=== PATIENT | male | born 1995 | race Caucasian/White ===

== ENCOUNTER 2016-11-23 22:36 | Emergency (ER) | payer BC ==
[~2016-11-23] VITALS: Ht 175.3 cm; Wt 100.0 kg
[~2016-11-23 22:36] MED LIST: ACET-749 PO
[2016-11-23 22:39] VITALS: TEMP 36.6; Ht 175.3 cm; Wt 100.0 kg
[2016-11-23] MEDS ORDERED: BLOOD PRESSURE PILL PO (22:56)
[2016-11-23] MEDS ORDERED: EFF/375 PO (22:56)
[2016-11-23 23:32] LABS: BASO % 0.1 %; BASO ABS # 0.01 K/uL (0-0.2); COMPLETE YES; HEMATOCRIT 42.2 % (42-52); IG% 0.3 %; LYMPH % 30.6 %; LYMPH ABS # 2.29 K/uL (1.2-3.4); MEAN CELL VOLUME 85.4 fL (80-100); MEAN CORPUSCULAR HEMOGLOBIN 29.4 pg (25-34); MEAN CORPUSCULAR HGB CONC 34.4 g/dl (32-36); MEAN PLATELET VOLUME 9.8 fL (7.4-10.4); MONO % 7.9 %; NEUT % 59.1 %; PLATELET COUNT 255 K/uL (130-400); RED BLOOD COUNT 4.94 M/uL (4.7-6.1); WHITE BLOOD COUNT 7.48 K/uL (4.8-10.8)
--- NOTE | 2016-11-23 23:35 | EMERGENCY ROOM VISIT NOTE ---
History Report prepared by Preeti: Vivian Cody Under the Supervision of: Dr. Jigna Britton D.O. First contact with patient: 23:05 Chief Complaint: DIZZY Stated Complaint: DIZZY, LEGS WEAK, FEELS OFF Nursing Triage Summary: Pt reports he was at work when he became dizzy and felt as though he would pass out. At time of incidient pt was standing over hot stove. At work since 1000 today. States he did eat and drink throughout his shift. States currently "my body feels very weird". Hx of bicuspid valve problem. History of Present Illness The patient is a 21 year old male who presents to the Emergency Room with complaints of persistent dizziness that began prior to arrival. 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 He states that he then became hot, weak, and dizzy. The patient states that he went to the back of the kitchen, got himself water, and sat down. He denies any loss of consciousness. The patient states that he had this happen in the past and actually lost consciousness at that time. He states that he attributed his syncopal event to not drinking enough water. The patient states that he ate lunch today and snacked today. He states that he kept up on his fluid intake. The patient denies any recent illness. He notes that he only urinated once today. The patient notes a history of a bicuspid aortic valve and hypertension. He denies medication compliance recently for his hypertension. The patient denies any history of diabetes. Source of History: patient Onset: prior to arrival Position: other (global) Quality: other (dizziness) Timing: other (persistent) Associated Symptoms: + headache, No LOC Note: Associated Symptoms: feeling hot Review of Systems See HPI for pertinent positives & negatives. A total of 10 systems reviewed and were otherwise negative. Past Medical & Surgical Medical Problems: (1) Bicuspid aortic valve (2) Hypertension Family History Diabetes mellitus Heart disease Hypertension Social History Smoking Status: Current Some Day Smoker Smokeless Tobacco Use: No Alcohol Use: occasionally Marital Status: single Housing Status: lives with family Occupation Status: employed Current/Historical Medications Scheduled Venlafaxine Hcl (Effexor), 37.5 MG PO DAILY [Blood Pressure Pill], 1 TAB PO DAILY Allergies Coded Allergies: No Known Allergies (Unverified Adverse Reaction, Unknown, 03/21/03) Physical Exam Vital Signs Date Time Temp Pulse Resp B/P Pulse Ox O2 Delivery O2 Flow Rate FiO2 11/24/16 00:43 76 18 174/94 96 Room Air 11/24/16 00:11 76 16 94 11/24/16 00:01 174/94 11/23/16 23:59 178/80 11/23/16 23:58 165/72 11/23/16 23:57 77 18 165/72 96 Room Air 81 178/80 84 174/94 11/23/16 23:41 82 18 94 11/23/16 23:36 83 15 96 11/23/16 23:30 169/93 11/23/16 23:17 179/80 11/23/16 23:06 84 16 96 11/23/16 22:57 87 11/23/16 22:53 184/93 11/23/16 22:39 36.6 97 18 194/88 96 Room Air Physical Exam HEENT: Head - normocephalic and atraumatic Pupils are equal, round, and reactive to light. Extraocular eye muscles are intact, and sclera are anicteric. Nose - moist nasal mucosa without discharge. Mouth - moist buccal mucosa. Oropharynx is nonerythematous and there is no tonsillar exudate or edema noted. Neck: Supple; no JVD, nuchal rigidity, cervical lymphadenopathy. Heart: Regular rate and rhythm. There is a normal S1 and S2 with no murmurs, clicks, or gallops appreciated. Lungs: Clear to auscultation bilaterally with no wheezes, rales, or rhonchi. Abdomen: Soft, completely nontender, nondistended, with good bowel sounds. There are no palpable pulsatile masses or hepatosplenomegaly. There is no guarding, rigidity, or rebound noted. Extremities: No evidence of cyanosis, clubbing, or edema. There are easily palpable peripheral pulses. Skin: hot to touch, and dry with good turgor and no rashes. Medical Decision & Procedures ER Provider Diagnostic Interpretation: 1 view chest x-ray: borderline cardiomegaly, no pulmonary pathology. Laboratory Results 11/23/16 22:50 Red Blood Count 4.94, Mean Corpuscular Volume 85.4, Mean Corpuscular Hemoglobin 29.4, Mean Corpuscular Hemoglobin Concent 34.4, Mean Platelet Volume 9.8, Neutrophils (%) (Auto) 59.1, Lymphocytes (%) (Auto) 30.6, Monocytes (%) (Auto) 7.9, Eosinophils (%) (Auto) 2.0, Basophils (%) (Auto) 0.1, Neutrophils # (Auto) 4.42, Lymphocytes # (Auto) 2.29, Monocytes # (Auto) 0.59, Eosinophils # (Auto) 0.15, Basophils # (Auto) 0.01 11/23/16 22:50 Test 11/23/16 22:50 White Blood Count 7.48 K/uL (4.8-10.8) Red Blood Count 4.94 M/uL (4.7-6.1) Hemoglobin 14.5 g/dL (14.0-18.0) Hematocrit 42.2 % (42-52) Mean Corpuscular Volume 85.4 fL (80-100) Mean Corpuscular Hemoglobin 29.4 pg (25-34) Mean Corpuscular Hemoglobin Concent 34.4 g/dl (32-36) Platelet Count 255 K/uL (130-400) Mean Platelet Volume 9.8 fL (7.4-10.4) Neutrophils (%) (Auto) 59.1 % Lymphocytes (%) (Auto) 30.6 % Monocytes (%) (Auto) 7.9 % Eosinophils (%) (Auto) 2.0 % Basophils (%) (Auto) 0.1 % Neutrophils # (Auto) 4.42 K/uL (1.4-6.5) Lymphocytes # (Auto) 2.29 K/uL (1.2-3.4) Monocytes # (Auto) 0.59 K/uL (0.11-0.59) Eosinophils # (Auto) 0.15 K/uL (0-0.5) Basophils # (Auto) 0.01 K/uL (0-0.2) RDW Standard Deviation 39.6 fL (36.4-46.3) RDW Coefficient of Variation 12.7 % (11.5-14.5) Immature Granulocyte % (Auto) 0.3 % Immature Granulocyte # (Auto) 0.02 K/uL (0.00-0.02) Anion Gap 11.0 mmol/L (3-11) Est Creatinine Clear Calc Drug Dose 134.0 ml/min Estimated GFR () 122.4 Estimated GFR (Non- 105.6 BUN/Creatinine Ratio 13.5 (10-20) Calcium Level 9.0 mg/dl (8.5-10.1) Total Bilirubin 0.5 mg/dl (0.2-1) Direct Bilirubin 0.2 mg/dl (0-0.2) Aspartate Amino Transf (AST/SGOT) 23 U/L (15-37) Alanine Aminotransferase (ALT/SGPT) 46 U/L (12-78) Alkaline Phosphatase 62 U/L (45-117) Total Protein 7.7 gm/dl (6.4-8.2) Albumin 4.6 gm/dl (3.4-5.0) Thyroid Stimulating Hormone (TSH) 3.810 uIu/ml (0.300-4.500) Laboratory results per my review. ECG Indication: other (dizziness) Rate (beats per minute): 90 Rhythm: normal sinus Findings: no acute ischemic change, no ectopy ED Course 230: Past medical records reviewed. The patient was evaluated in room A9B. A complete history and physical exam was performed. A twelve-lead EKG was obtained as described above. The patient had a chest x-ray which showed no pulmonary findings but did reveal borderline cardiomegaly. Patient's blood pressure came down slightly on sounds like he was here in the emergency department. 0020: I reevaluated the patient and he feels better. I discussed all the exam findings with him and his family and I discussed the treatment plan. I discussed the importance of him taking his medications. He verbalized complete understanding and agreement. He is ready to go home. Medical Decision The patient is a 21 year old male who presents to the ED with dizziness. Differential diagnosis includes hypertensive crisis, near syncope, dehydration, migraine, vasovagal syncope. Lab interpretation: no leukocytosis, stable H&H, normal TSH and glucose, normal LFTs and renal function. Patient has a history of hypertension but does not consistently take his medications. The patient developed a headache and near syncope while at work today. His symptoms have resolved here in the emergency department. The patient was found to be moderately hypertensive. I spent a great of time talking to the patient about control of his blood pressure, diet and exercise. I've asked him to follow up closely with Dr. Hunter for further control blood pressure. I suggested that he take his blood pressure 3-4 times a week and keep a log. The patient is prescribed Losarten. He should start taking this regularly as directed. If he has any returning symptoms, he should return here to the ER. Impression Primary Impression: Near syncope Additional Impression: Uncontrolled hypertension Scribe Attestation The scribe's documentation has been prepared under my direction and personally reviewed by me in its entirety. I confirm that the note above accurately reflects all work, treatment, procedures, and medical decision making performed by me. Departure Information Dispostion Home / Self-Care Referrals Mike Hunter M.D. (PCP) Forms HOME CARE DOCUMENTATION FORM, IMPORTANT VISIT INFORMATION Patient Instructions ED Hypertension Conf Out Of Control, Hypertension Control, [facility] Additional Instructions Rest. Limit salt intake Slowly start an exercise program once you are taking your BP meds regularly Keep a log of your BPs - follow up with Dr. Hunter Problem Qualifiers
[2016-11-23 23:39] LABS: BUN/CREATININE RATIO 13.5 (10-20); POTASSIUM 3.5 mmol/L (3.5-5.1)
[2016-11-23 23:50] LABS: THYROID STIMULATING HORMONE 3.81 uIu/ml (0.300-4.500)
[2016-11-24 00:43] VITALS: BP 174/94; PULSE 76; O2SAT 96
--- NOTE | 2016-11-24 06:24 | DIAGNOSTIC IMAGING REPORT ---
CHEST ONE VIEW PORTABLE CLINICAL HISTORY: Dizziness. Weakness. Pain delays. COMPARISON STUDY: No previous studies for comparison. FINDINGS: The heart is the upper limits of normal in size given the AP portable technique. There is no failure. There is no focal pulmonary consolidation. There are no pleural effusions.[ IMPRESSION: No active disease in the chest. Electronically signed by: Esdras August M.D. 11/24/2016 6:23 AM Dictated Date/Time: 11/24/2016 6:22 AM
== END 2016-11-24 00:40 | disposition home or self-care (01) ==
LOC: C.EDB 22:37 → C.EDA 11-24 00:40
DX: R55 Syncope and collapse (principal); I10 Essential (primary) hypertension; I35.8 Other nonrheumatic aortic valve disorders; F17.200 Nicotine dependence, unspecified, uncomplicated; Z79.899 Other long term (current) drug therapy; Z83.3 Family history of diabetes mellitus; Z82.49 Family history of ischemic heart disease and other diseases of the circulatory system

== ENCOUNTER 2017-10-31 05:08 | Emergency (ER) | payer BC, OTHER ==
[~2017-10-31] VITALS: Ht 175.3 cm; Wt 100.1 kg
[~2017-10-31 05:08] MED LIST changes: -ACET-749 PO; +BLOOD PRESSURE PILL PO; +EFF/375 PO
[2017-10-31 05:11] VITALS: TEMP 36.7; Ht 175.3 cm; Wt 100.1 kg
[2017-10-31] MEDS ORDERED: OPTIRAY 320 IV PRN (05:30)
[2017-10-31 05:32] LABS: BASO % 0.2 %; BASO ABS # 0.02 K/uL (0-0.2); EOS % 1.3 %; EOS ABS # 0.17 K/uL (0-0.5); HEMATOCRIT 43.6 % (42-52); HEMOGLOBIN 15.8 g/dL (14.0-18.0); IG# 0.03 K/uL (0.00-0.02); LYMPH % 14.9 %; LYMPH ABS # 1.95 K/uL (1.2-3.4); MEAN CELL VOLUME 85.8 fL (80-100); MEAN CORPUSCULAR HEMOGLOBIN 31.1 pg (25-34); MEAN CORPUSCULAR HGB CONC 36.2 g/dl (32-36); MEAN PLATELET VOLUME 9.9 fL (7.4-10.4); MONO ABS # 1.31 K/uL (0.11-0.59); NEUT % 73.4 %; NEUT ABS # 9.58 K/uL (1.4-6.5); PLATELET COUNT 240 K/uL (130-400); RED CELL DISTRIBUTION WIDTH CV 12.5 % (11.5-14.5); RED CELL DISTRIBUTION WIDTH SD 39.7 fL (36.4-46.3); WHITE BLOOD COUNT 13.06 K/uL (4.8-10.8)
[2017-10-31] MEDS ORDERED: LOSA50TA6 PO (05:36)
[2017-10-31 05:41] LABS: ISTAT IONIZED CALCIUM 1.2 mmol/l (1.12-1.32); ISTAT POTASSIUM 3.7 mEq/L (3.3-5.0)
[2017-10-31 05:49] LABS: CALCIUM 9.2 mg/dl (8.5-10.1); CREATININE 1.02 mg/dl (0.60-1.40); POTASSIUM 3.7 mmol/L (3.5-5.1)
[2017-10-31] MEDS ORDERED: AMOXICILLIN/CLAVULANATE TAB 875 MG TAB PO STA (06:23)
[2017-10-31 06:30] VITALS: BP 156/76; PULSE 83; O2SAT 96
[2017-10-31] MEDS ORDERED: AMOXICILLIN/CLAVULANATE TAB 875 MG TAB PO ONE (06:30)
[2017-10-31] MEDS ORDERED: AMOXICIL/CLAVU 875MG HOME PACK PO ONE (06:30)
--- NOTE | 2017-10-31 06:30 | EMERGENCY ROOM VISIT NOTE ---
History First contact with patient: 05:14 Chief Complaint: ABDOMINAL PAIN Stated Complaint: RIGHT LOWER ABD PAIN,SIDE PAIN History of Present Illness The patient is a 22 year old male who presents to the Emergency Room with complaints of nausea and right lower quadrant pain for the past 12 hours. He describes the pain as discomfort, ranging in severity 7 out of 10. Nothing makes it better or worse. It does not radiate. Patient has a lack of appetite. Patient denies chest pain, dyspnea, fever, chills, vomiting, diarrhea , back pain, urinary symptoms, testicular penile pain. He still has his appendix. Review of Systems An 10 system review of systems was completed with positives and pertinent negatives listed in the HPI. Past Medical/Surgical History Medical Problems: (1) Bicuspid aortic valve (2) Hypertension Family History Diabetes mellitus Heart disease Hypertension Social History Smoking Status: Current Some Day Smoker Alcohol Use: occasionally Marital Status: single Housing Status: lives with family Occupation Status: employed Current/Historical Medications Scheduled Losartan Potassium (Cozaar), 50 MG PO DAILY Venlafaxine Hcl (Effexor), 37.5 MG PO DAILY Physical Exam Vital Signs Date Time Temp Pulse Resp B/P (MAP) Pulse Ox O2 Delivery O2 Flow Rate FiO2 18 05:11 36.7 98 18 178/86 97 Room Air Physical Exam VITALS: Vitals are noted on the nurse's note and reviewed by myself. Vital signs hypertensive GENERAL: Pleasant male, in no acute distress, nondiaphoretic, well-developed well-nourished. SKIN: The skin was without rashes, erythema, edema, or bruising. There is no tenting of the skin. Capillary reflex less than 2 seconds. HEAD: Normocephalic atraumatic. EARS: External auditory canals clear, tympanic membranes pearly ronquillo without erythema or effusion bilaterally. EYES: Pupils equal round and reactive to light and accommodation. Conjunctivae without injection, sclerae without icterus. Extraocular movements intact. NOSE: Patent, turbinates without inflammation or discharge. MOUTH: Mucous membranes moist. Pharynx without erythema or exudate. Uvula midline. Airway patent. Tongue does not deviate. NECK: Supple without nuchal rigidity. No lymphadenopathy. No thyromegaly. Cervical spine is nontender. No JVD. HEART: Regular rate and rhythm LUNGS: Clear to auscultation bilaterally without wheezes, rales or rhonchi. No retractions or accessory muscle use. ABDOMEN: Positive bowel sounds x 4. Normal tympanic percussion. Soft, tender to palpation right lower quadrant, without masses or organomegaly. Taylor sign negative. No guarding or rebound tenderness. No CVA tenderness MUSCULOSKELETAL: No muscle atrophy, erythema, or edema noted. NEURO: Patient was alert and oriented to person place and time. Normal sensation to light and sharp touch. No focal neurological deficits. Medical Decision & Procedures Laboratory Results 10/31/17 05:20 Red Blood Count 5.08, Mean Corpuscular Volume 85.8, Mean Corpuscular Hemoglobin 31.1, Mean Corpuscular Hemoglobin Concent 36.2, Mean Platelet Volume 9.9, Neutrophils (%) (Auto) 73.4, Lymphocytes (%) (Auto) 14.9, Monocytes (%) (Auto) 10.0, Eosinophils (%) (Auto) 1.3, Basophils (%) (Auto) 0.2, Neutrophils # (Auto ) 9.58, Lymphocytes # (Auto) 1.95, Monocytes # (Auto) 1.31, Eosinophils # (Auto ) 0.17, Basophils # (Auto) 0.02 10/31/17 05:20 Test 10/31/17 05:20 10/31/17 05:26 10/31/17 05:30 White Blood Count 13.06 K/uL (4.8-10.8) Red Blood Count 5.08 M/uL (4.7-6.1) Hemoglobin 15.8 g/dL (14.0-18.0) Hematocrit 43.6 % (42-52) Mean Corpuscular Volume 85.8 fL (80-100) Mean Corpuscular Hemoglobin 31.1 pg (25-34) Mean Corpuscular Hemoglobin Concent 36.2 g/dl (32-36) Platelet Count 240 K/uL (130-400) Mean Platelet Volume 9.9 fL (7.4-10.4) Neutrophils (%) (Auto) 73.4 % Lymphocytes (%) (Auto) 14.9 % Monocytes (%) (Auto) 10.0 % Eosinophils (%) (Auto) 1.3 % Basophils (%) (Auto) 0.2 % Neutrophils # (Auto) 9.58 K/uL (1.4-6.5) Lymphocytes # (Auto) 1.95 K/uL (1.2-3.4) Monocytes # (Auto) 1.31 K/uL (0.11-0.59) Eosinophils # (Auto) 0.17 K/uL (0-0.5) Basophils # (Auto) 0.02 K/uL (0-0.2) RDW Standard Deviation 39.7 fL (36.4-46.3) RDW Coefficient of Variation 12.5 % (11.5-14.5) Immature Granulocyte % (Auto) 0.2 % Immature Granulocyte # (Auto) 0.03 K/uL (0.00-0.02) Est Creatinine Clear Calc Drug Dose 130.3 ml/min Estimated GFR () 118.7 Estimated GFR (Non- 102.4 BUN/Creatinine Ratio 14.2 (10-20) Calcium Level 9.2 mg/dl (8.5-10.1) Bedside Hemoglobin 15.3 g/dl (14.0-18.0) Bedside Hematocrit 45 % (42-52) Bedside Sodium 139 mEq/L (135-144) Bedside Potassium 3.7 mEq/L (3.3-5.0) Bedside Chloride 100 mEq/L (101-112) Bedside Total CO2 25 mEq/l (24-31) Anion Gap 18.0 mmol/L (16-25) Bedside Blood Urea Nitrogen 14 mg/dl (7-18) Bedside Creatinine 1.0 mg/dl (0.6-1.3) Bedside Glucose (other) 106 mg/dl (70-99) Bedside Ionized Calcium (Chandni) 1.20 mmol/l (1.12-1.32) Urine Color YELLOW Urine Appearance CLEAR (CLEAR) Urine pH 6.0 (4.5-7.5) Urine Specific [place] 1.016 (1.000-1.030) Urine Protein NEG (NEG) Urine Glucose (UA) NEG (NEG) Urine Ketones NEG (NEG) Urine Occult Blood NEG (NEG) Urine Nitrite NEG (NEG) Urine Bilirubin NEG (NEG) Urine Urobilinogen NEG (NEG) Urine Leukocyte Esterase NEG (NEG) ED Course Prior records/ancillary studies reviewed. Triage Nursing notes reviewed. The patient's history was concerning for abdominal pain. Differential diagnosis: Etiologies such as appendicitis, diverticulitis, PUD, biliary pathology, UTI, pancreatitis, obstruction, mesenteric ischemia, aortic pathology, infections, inflammatory bowel disease, renal colic, as well as others were entertained. Physical examination findings: As above. ER treatment provided: Zofran, morphine, IV fluids On reassessment the patient felt better. Diagnostics interpreted by me: The labs revealed mild leukocytosis. Stable H&H Imaging studies: CT ABDOMEN & PELVIS With Contrast: Impression: Acute diverticulitis of the cecum. Small amount of free fluid in the pelvis. No bowel obstruction, extra luminal gas, or abscess. Additional findings: Lower thorax is unremarkable. Liver, gallbladder, spleen, pancreas and adrenal glands are unremarkable. Kidneys, ureters and urinary bladder unremarkable. Appendix is unremarkable. No acute osseous abnormality. Radiologist: Raphael Young MD Exam and history seem consistent with diverticulitis. This is the patient's first episode. He was afebrile nontoxic. He had a mild leukocytosis. Patient did not have acute abdomen on exam. He is well-appearing. He is tolerating fluids. CT concerning for diverticulitis. He was advised to follow-up family care in a day or 2 here in the ER sooner for abdominal pain, fevers, vomiting, worsening signs or symptoms or as needed. He was advised to monitor his blood pressure. He is currently on blood pressure medicine. Patient denied any urinary symptoms or testicular / penile pain. By the evaluation outlined above emergent etiologies such as appendicitis, PUD, biliary pathology, UTI, pancreatitis, obstruction, mesenteric ischemia, aortic pathology, renal colic , as well as others were deemed relatively unlikely. The pt informed about the findings as listed above. All questions were answered and pleased with the treatment. Return instructions were outlined and the patient was discharged in stable condition. Outpatient prescription management: augmentin Referral: The patient was referred back to their primary care physician for follow-up in 1 -2 days for a recheck of the current condition. Case reviewed with my attending The chart was completed utilizing [employer] voice recognition software. Grammatical errors, random word insertions, pronoun errors, and incomplete sentences are an occassional consequence of this system due to software limitations, ambient noise, and hardware issues. Any formal questions or concerns about the content, text, or information contained within the body of this dictation should be directly addressed to the physician legal document assistant for clarification. Medical Decision As above Blood Pressure Screening Patient's blood pressure: Elevated blood pressure Blood pressure disposition: Elevated BP felt to be situational Impression Primary Impression: Diverticulitis Departure Information Dispostion Home / Self-Care Condition GOOD Referrals Mike Hunter M.D. (PCP) Patient Instructions [facility] Additional Instructions DO NOT drive, drink alcohol, operate machinery, or perform dangerous activities today. You were given medications in the ER that can affect your ability to safely function or operate a vehicle. Amoxicillin Clavulanate (Augmentin) 875mg: Take one pill twice daily for 14 days for your bowel infection. All antibiotics can cause diarrhea. If this occurs and you feel worse or it does not resolve in 1-2 days follow up with your doctor or return to the Emergency Department as this could be signs of serious underlying problems. Any medication can cause an allergic reaction, stop the pills immediately and return to the ER for rash, hives, breathing difficulties, or swelling. Zofran 4 m tablet every 6 hours as needed for nausea or vomiting. Ibuprofen(Motrin, Advil) may be used for fever or pain. Use 600mg every six hours as needed. Take with food. Avoid using more than 2400mg in a 24 hour period. Do not use 2400mg per day for more than three consecutive days without physician direction. Prolonged inappropriate use can lead to stomach upset or ulcers. (AND/OR) Acetaminophen(Tylenol) may be used for fever or pain. Use 1000mg every six hours as needed. Avoid using more than 3000mg in a 24 hour period. Rest and drink plenty of fluids as tolerated. Slow sips of water or sports drinks are recommended instead of large amounts all at once. Continue current medications. Once your stomach is settled start with a clear liquid diet (jello, soup broth, etc.) and then advance as tolerated. You should avoid full, heavy meals for about 24 hrs from the time your symptoms resolved. Return to the ER immediately for worsening or persistent abdominal pain, vomiting, fevers, chest pains, difficulty breathing, black or bloody stools, worsening of your condition, or as needed. Follow up with your primary physician 2-3 days for a recheck of your current condition. You may need a gastroenterology referral for your diverticulitis at a young age.
[2017-10-31] MEDS ORDERED: ONDA4TAB10 SL (06:32)
[2017-10-31] MEDS ORDERED: AMOX875T PO (06:32)
[2017-10-31] MEDS ORDERED: OXYCODONE IR HOME PACK PO ONE (06:45)
--- NOTE | 2017-10-31 06:56 | DIAGNOSTIC IMAGING REPORT ---
ABDOMEN AND PELVIS CT WITH IV CONTRAST CT DOSE: 667.26 mGy.cm HISTORY: Acute right lower quadrant abdominal pain rlq pain TECHNIQUE: Multiaxial CT images of the abdomen and pelvis were performed following the use of intravenous contrast. A dose lowering technique was utilized adhering to the principles of ALARA. COMPARISON STUDY: None. FINDINGS: Minimal dependent bibasilar atelectasis. No pneumatosis or pneumoperitoneum identified. Imaged inferior cardiac chambers are unremarkable. Liver, gallbladder, spleen, pancreas and adrenal glands are within normal limits. Kidneys are within normal limits. There is a curvilinear 2 mm hyperattenuating focus along the dependent aspect of the proximal right ureter, image 210 series 3. No hydronephrosis, perinephric or periureteral inflammatory stranding. Bladder is partially decompressed. Aorta appears normal. No bulky adenopathy. No small bowel obstruction. Mild free pelvic fluid of the dependent pelvis. Scattered noninflamed diverticula of the descending colon and splenic flexure. There is moderate wall thickening with surrounding inflammatory stranding adjacent to an inflamed cecal diverticulum as seen on image 265 series 3. Additional noninflamed cecal diverticula are also noted. No evidence of abscess or perforation. The appendix is air-filled and appears unremarkable, image 342 series 3. Terminal ileum appears to be within normal limits. Soft tissues are unremarkable. The bones appear intact. IMPRESSION: 1. Findings compatible with acute cecal diverticulitis with mild reactive free fluid of the dependent pelvis. No associated abscess or evidence of perforation. 2. Normal appendix. 3. No bowel obstruction. 4. Curvilinear 2 mm hyperattenuating focus of the dependent proximal right ureter without hydronephrosis may reflect a nonobstructing ureteral calculus. Electronically signed by: Talat Naidu M.D. 10/31/2017 6:55 AM Dictated Date/Time: 10/31/2017 6:49 AM
== END 2017-10-31 06:45 | disposition home or self-care (01) ==
LOC: C.EDB 05:09 → C.EDA 06:45
DX: K57.32 Diverticulitis of large intestine without perforation or abscess without bleeding (principal); I10 Essential (primary) hypertension; F17.210 Nicotine dependence, cigarettes, uncomplicated; Z79.899 Other long term (current) drug therapy

== ENCOUNTER → 2017-12-02 | Day surgery (SDC) | payer OTHER ==
[2017-11-27 09:23] VITALS: Ht 175.3 cm; Wt 97.7 kg
[~2017-12-02] VITALS: Ht 175.3 cm; Wt 97.7 kg
[~2017-12-02] MED LIST changes: +AMOX500C3 PO; +ATROPINE SULFATE 0.1 MG/ML 5ML SYR IV PRN; -BLOOD PRESSURE PILL PO; +EpHEDrine SULFATE INJ 50 MG/ML AMP IV PRN; +LIDOCAINE HCL 2% 2 ML VIAL (20MG/ML) ONE; +LOSA50TA6 PO; +MIDAZOLAM HCL 1 MG/ML 2ML VIAL ONE; +PROPOFOL IV EMULSION 10 MG/ML 20 ML VIAL ONE; +SODIUM CHLORIDE 0.9% 500ML 500 ML IV ONE
--- NOTE | 2017-12-02 13:18 | Endo History and Physical ---
History & Physical Date of Service: December 02, 2017. Chief Complaint: Referring Physician: History of Present Illness Hx of diverticulitis Past Surgical History Hx Cardiac Surgery: No Hx Internal Defibrillator: No Hx Pacemaker: No Hx Abdominal Surgery: No Hx of Implantable Prosthesis: No Hx Cancer Surgery: No Hx Thoracic Surgery: No Hx Orthopedic: No Hx Urinary Tract Surgery: No Family History Esophogeal [place] Social History Smoking Status: Current Some Day Smoker Hx Substance Use: No Hx Alcohol Use: Yes (OCCASIONAL) Allergies Coded Allergies: No Known Allergies (Unverified , 12/02/17) Current Medications Reported Home Medications Medications Dose Route/Sig Max Daily Dose Days Date Category Amoxil (Amoxicillin) 500 Mg Cap 1 Cap PO DIRECTED PRN 10 11/27/17 Reported Cozaar (Losartan Potassium) 50 Mg Tab 50 Mg PO DAILY 10/31/17 Reported Effexor (Venlafaxine Hcl) 37.5 Mg Tab 37.5 Mg PO DAILY 11/23/16 Reported Vital Signs Weight (Kilograms): 97.73 Height (Feet): 5 Height (Inches): 9 Physical Exam General Appearance: no apparent distress Respiratory/Chest: Auscultation: breath sounds normal Cardiovascular: Heart Auscultation: RRR Abdomen: Inspection & Palpation: soft, non-distended Assessment and Plan Stable for colonoscopy
--- NOTE | 2017-12-02 14:01 | Discharge Instructions ---
Endoscopy Patient Instructions Date / Procedure(s) Performed December 02, 2017. Colonoscopy Allergy Information Coded Allergies: No Known Allergies (Unverified , 12/02/17) Discharge Date / Findings December 02, 2017. Right sided diverticulosis and hemorrhoids Provider Instructions Activity Restrictions - No exercising or heavy lifting for 24 hours. - Do not drink alcohol the day of the procedure. - Do not drive a car or operate machinery until the day after the procedure. - Do not make any important decisions or sign important papers in 24 hours after the procedure. Following Day: - Return to full activity which may include returning to work/school. Diet Start your diet with liquids and light foods (jello, soup, juice, toast). Then eat your usual diet if not nauseated. Treatment For Common After Affects For mild abdominal pain, bloating, or excessive gas: - Rest - Eat lightly - Lie on right side Follow-Up Information Follow-up with Dr. Hunter as scheduled Anesthesia Information What You Should Know You have had a procedure that required some medicine to reduce anxiety and discomfort. This treatment is called moderate sedation. After receiving the treatment, you may be sleepy, but you will be able to breathe on your own. The effects of the treatment may last for several hours. Follow these instructions along with Activity/Diet recommendations noted above: * Do NOT do anything where dizziness or clumsiness would be dangerous. * Rest quietly at home today, then you can be up and about tomorrow. * Have a responsible person stay with you the rest of today. * You may have had an I.V. today. If so, you may take the dressing off later today. Recommendations Call your doctor if: * Trouble breathing * Continuous vomiting for more than 24 hours * Temperature above 101 degrees * Severe abdominal pain or bloating * Pain not relieved by pain medicine ordered * There is increased drainage or redness from any incision * A large amount of rectal bleeding greater than 2-3 tablespoons. (If you had a polyp/s removed or have hemorrhoids, a small amount of blood - from the rectum is to be expected.) * You have any unanswered questions or concerns. IN THE EVENT OF A SERIOUS EMERGENCY, GO TO THE NEAREST EMERGENCY ROOM Your discharge instructions were prepared by provider Reggie Thompson. Patient Instructions Signature Page Giorgio Jeffery Patient (or Guardian) Signature/Date: I have read and understand the instructions given to me by my caregivers. Caregiver/RN/Doctor Signature/Date: The above-named patient and/or guardian has received patient instructions on this date. + Original Patient Signature Page (only) stays with chart. Please make copy for patient.
--- NOTE | 2017-12-02 14:07 | GI REPORT ---
Patient Name: Giorgio Jeffery Procedure Date: 12/02/2017 1:16 PM Date of : 1995 Admit Type: Outpatient Age: 22 Gender: Male Attending MD: Reggie Thompson MD Procedure: Colonoscopy Providers: Reggie Thompson MD Referring MD: Mike Hunter Indications: Follow-up of diverticulitis Medicines: Monitored Anesthesia Care Complications: No immediate complications. Estimated Blood Loss: Estimated blood loss: none. Procedure: Pre-Anesthesia Assessment: - Prior to the procedure, a History and Physical was performed, and patient medications and allergies were reviewed. The patient is competent. The risks and benefits of the procedure and the sedation options and risks were discussed with the patient. All questions were answered and informed consent was obtained. Patient identification and proposed procedure were verified by the physician and the nurse in the procedure room. Mental Status Examination: alert and oriented. Airway Examination: normal oropharyngeal airway and neck mobility. Respiratory Examination: clear to auscultation. CV Examination: normal. ASA Grade Assessment: II - A patient with mild systemic disease. After reviewing the risks and benefits, the patient was deemed in satisfactory condition to undergo the procedure. The anesthesia plan was to use monitored anesthesia care (MAC). Immediately prior to administration of medications, the patient was re-assessed for adequacy to receive sedatives. The heart rate, respiratory rate, oxygen saturations, blood pressure, adequacy of pulmonary ventilation, and response to care were monitored throughout the procedure. The physical status of the patient was re-assessed after the procedure. After I obtained informed consent, the scope was passed under direct vision. Throughout the procedure, the patient's blood pressure, pulse, and oxygen saturations were monitored continuously. The scope was introduced through the anus and advanced to the terminal ileum. The colonoscopy was performed without difficulty. The patient tolerated the procedure well. The quality of the bowel preparation was good. The terminal ileum, ileocecal valve, appendiceal orifice, and rectum were photographed. Findings: The perianal and digital rectal examinations were normal. The terminal ileum appeared normal. Many small and large-mouthed diverticula were found from descending colon to cecum. Non-bleeding internal hemorrhoids were found during retroflexion. The hemorrhoids were small. Impression: - The examined portion of the ileum was normal. - Diverticulosis from descending to cecum. - Non-bleeding internal hemorrhoids. - No specimens collected. Recommendation: - Discharge patient to home. - High fiber diet. - Use fiber, for example Citrucel, Fibercon, Konsyl or Metamucil. - Return to referring physician. Reggie Thompson MD 12/02/2017 2:06:28 PM This report has been signed electronically. Note Initiated On: 12/02/2017 1:16 PM Number of Addenda: 0 I attest to the content of the Intraoperative Record and orders documented therein, exceptions below {[id number]}
--- NOTE | 2017-12-02 14:08 | Anesthesiology Progress Note ---
Anesthesia Post Op Note Date & Time December 02, 2017 at 14:07 Vital Signs Pain Intensity: 0 Vital Signs Past 12 Hours Date Time Temp Pulse Resp B/P (MAP) Pulse Ox O2 Delivery O2 Flow Rate FiO2 12/02/17 13:20 36.7 82 16 159/78 (105) 98 Room Air Notes Mental Status: alert / awake / arousable, participated in evaluation Pt Amnestic to Procedure: Yes Nausea / Vomiting: adequately controlled Pain: adequately controlled Airway Patency, RR, SpO2: stable & adequate BP & HR: stable & adequate Hydration State: stable & adequate Anesthetic Complications: no major complications apparent
[2017-12-02 14:31] VITALS: BP 132/82; PULSE 75; O2SAT 99
== END | disposition home or self-care (01) ==
LOC: C.GI 12:57
PROVIDERS: ATTEND Student in an Organized Health Care Education/Training Program
DX: K57.30 Diverticulosis of large intestine without perforation or abscess without bleeding (principal); K64.8 Other hemorrhoids; I10 Essential (primary) hypertension; K21.9 Gastro-esophageal reflux disease without esophagitis; F17.200 Nicotine dependence, unspecified, uncomplicated; E66.9 Obesity, unspecified; Z68.31 Body mass index [BMI] 31.0-31.9, adult

== ENCOUNTER 2021-02-27 19:39 | Inpatient (IN) ==
[2021-02-27] MEDS ORDERED: LORazepam 1 MG TAB SL STA (20:16)
--- NOTE | 2021-02-27 20:21 | Emergency Department Note ---
History of Present Illness General Chief Complaint: Mental Health Evaluation Stated Complaint: ANXIETY; DOES NOT WANT TO BE IN [facility] ROOM Time Seen by Provider: 02/27/21 20:11 Source: patient Mode of arrival: ambulatory Limitations: no limitations History of Present Illness Provider complaint: anxiety and heart racing Onset (ago): month(s) Symptoms: + palpitations Severity: severe Quality: + constant and + worsening Place: + home History of similar episodes: Yes Relieved By: + nothing Exacerbated By: + thinking about event Associated symptoms: + palpitations; no chest pain, no shortness of breath, no fever/chills or no malaise Home Medications Medication Instructions Recorded Confirmed Type losartan 50 mg tablet 50 mg PO DAILY 07/03/18 02/28/21 History escitalopram oxalate 20 mg tablet 30 mg PO DAILY 02/28/21 02/28/21 History famotidine 40 mg tablet 40 mg PO BID 02/28/21 02/28/21 History hydroxyzine HCl 10 mg tablet 10 mg PO TID PRN 02/28/21 02/28/21 History lorazepam 0.5 mg tablet 0.5 mg PO BID PRN 02/28/21 02/28/21 History Allergies Allergy/AdvReac Type Severity Reaction Status Date / Time No Known Allergies AdvReac Unknown Verified 09/11/19 11:57 Past Med/Surg History Medical History (Updated 02/28/21 @ 01:13 by Kilo Lowe MD) Anxiety Bicuspid aortic valve Hypertension Panic attack Family History Other No pertinent family history in first degree relatives Social History Smoking Status: Never smoker Tobacco Type: Cigarettes Hx Alcohol Use: No Hx Substance Use: No Preferred Language: Georgian Feels Safe at Home: Yes Review of Systems See HPI for pertinent positives & negatives. and A total of 10 systems reviewed and were otherwise negative Physical Exam Vital Signs Vital Signs - 24 hr 02/27/21 19:58 02/28/21 00:01 Temperature 37 C Temperature Source Temporal Artery Scan Pulse Rate 112 H Pulse Rate [Finger] 64 Respiratory Rate 18 18 Respiratory Effort / Characteristics Non-Labored Respiratory Depth Normal Blood Pressure 174/96 H Blood Pressure [Right Arm] 147/62 H Blood Pressure Mean 122 Blood Pressure Mean [Right Arm] 90 Pulse Oximetry 98 98 Oxygen Delivery Method Room Air Room Air Sepsis Recent Fever Within 48 Hours No Sepsis New/Unexplained Change in Mental Status No Sepsis Action Taken by Nursing No Action Required GENERAL: Anxious, tearful EYE EXAM: Normal conjunctiva. PERRL, no anisocoria and EOM's grossly intact w/o pain. OROPHARYNX: Moist mucus membranes. Grossly normal dentition. NECK: Supple, no nuchal rigidity, no adenopathy, non-tender. No signs of meningi smus. LUNGS: Clear to auscultation. Normal chest wall mechanics. HEART: NSR, no MRG. ABDOMEN: Abdomen soft, non-tender, normo-active bowel sounds, no masses, no rebound or guarding. BACK: No CVA TTP. SKIN: No rashes and no bruising. UPPER EXTREMITIES: Upper extremities are grossly normal. LOWER EXTREMITIES: Grossly normal, no edema. NEURO EXAM: A&O x3, cranial nerves II-XII grossly intact, normal speech, moves all 4 extremities on command w/o issue. Psych: Extremely anxious, quick speech, denies SI, HI, or AVH. Course Administered Medications Discontinued Medications Lorazepam (Lorazepam 1 Mg Tab) 1 mg SL NOW STA Stop: 02/27/21 20:17 Last Admin: 02/27/21 20:22 Dose: 1 mg Documented by: [id number] Ziprasidone (Ziprasidone 20 Mg/Ml Sdv) 10 mg IM NOW STA Stop: 02/27/21 21:19 Last Admin: 02/27/21 21:42 Dose: 10 mg Documented by: [id number] Medical Decision Making Differential Diagnosis Differential Diagnosis: Mood disorder, infection, hypoglycemia, electrolyte abnormalities, cardiac sources, intracerebral event, toxicologic, trauma, neurologic, as well as other pathologies. Medical Records Attestation: I reviewed the patient's medical records. Home Medications Current Medication List: was personally reviewed by me Laboratory Data Attestation: I reviewed the patient's lab results. Result diagrams: 02/27/21 20:34 02/27/21 20:34 Lab Results 02/27/21 02/27/21 02/27/21 Range/Units 20:20 20:20 20:20 WBC (4.8-10.8) K/uL RBC (4.7-6.1) M/uL Hgb (14.0-18.0) g/dL Hct (42-52) % MCV (80-100) fL MCH (25-34) pg MCHC (32-36) g/dL RDW Std Deviation (36.4-46.3) fL RDW Coeff of Sarah (11.5-14.5) % Plt Count (130-400) K/uL MPV (7.4-10.4) fL Immature Gran % (Auto) % Neut % (Auto) % Lymph % (Auto) % Lucas % (Auto) % Eos % (Auto) % Baso % (Auto) % Neut # (Auto) (1.4-6.5) K/uL Lymph # (Auto) (1.2-3.4) K/uL Lucas # (Auto) (0.11-0.59) K/uL Eos # (Auto) (0-0.5) K/uL Baso # (Auto) (0-0.2) K/uL Immature Gran # (Auto) (0.00-0.02) K/uL Sodium (136-145) mmol/L Potassium (3.5-5.1) mmol/L Chloride (98-107) mmol/L Carbon Dioxide (21-32) mmol/L Anion Gap (3-11) BUN (7-18) mg/dl Creatinine (0.6-1.4) mg/dl Est Cr Clr Drug Dosing ml/min Est GFR ( Amer) ml/min Est GFR (Non-Af Amer) ml/min BUN/Creatinine Ratio (10-20) Glucose (70-99) mg/dl Calcium (8.5-10.1) mg/dl Total Bilirubin (0.2-1) mg/dl AST (15-37) U/L ALT (12-78) U/L Alkaline Phosphatase (45-117) U/L Total Protein (6.4-8.2) gm/dl Albumin (3.4-5.0) gm/dl Globulin (2.5-4.0) gm/dl Albumin/Globulin Ratio (0.9-2) TSH (0.300-4.500) uIu/ml Urine Color Urine Appearance (Clear) Urine pH (4.5-7.5) Ur Specific Bowler (1.000-1.030) Urine Protein (Negative) Urine Glucose (UA) (Negative) Urine Ketones (Negative) Urine Blood (Negative) Urine Nitrite (Negative) Urine Bilirubin (Negative) Urine Urobilinogen (Negative) Ur Leukocyte Esterase (Negative) Urine WBC (Auto) (0-5) /hpf Urine RBC (Auto) (0-4) /hpf U Hyaline Cast (Auto) (0-5) /lpf U Epithel Cells (Auto) (0-5) /lpf Urine Bacteria (Auto) (Negative) Salicylates (2.8-20) mg/dl Urine Opiates Screen (Neg) Ur Methadone, Qual (Neg) Acetaminophen (10-30) ug/ml Urine Barbiturates (Neg) Ur Phencyclidine (PCP) (Neg) U Amphetamin/Meth Scrn (Neg) MDMA (Ecstasy) Screen (Neg) U Benzodiazepines Scrn (Neg) Ur Cocaine Metabolite (Neg) U Marijuana (THC) Screen (Neg) Ethyl Alcohol mg/dL (0-3) mg/dl COVID-19 Eval Order Cancelled Covid19 at [facility] SARS-CoV-2 (PCR) NEGATIVE (Negative) 02/27/21 02/27/21 02/27/21 Range/Units 20:34 20:34 20:34 WBC 8.74 (4.8-10.8) K/uL RBC 5.06 (4.7-6.1) M/uL Hgb 15.4 (14.0-18.0) g/dL Hct 43.2 (42-52) % MCV 85.4 (80-100) fL MCH 30.4 (25-34) pg MCHC 35.6 (32-36) g/dL RDW Std Deviation 41.3 (36.4-46.3) fL RDW Coeff of Sarah 13.3 (11.5-14.5) % Plt Count 321 (130-400) K/uL MPV 10.5 H (7.4-10.4) fL Immature Gran % (Auto) 0.2 % Neut % (Auto) 59.3 % Lymph % (Auto) 30.7 % Lucas % (Auto) 6.4 % Eos % (Auto) 3.2 % Baso % (Auto) 0.2 % Neut # (Auto) 5.18 (1.4-6.5) K/uL Lymph # (Auto) 2.68 (1.2-3.4) K/uL Lucas # (Auto) 0.56 (0.11-0.59) K/uL Eos # (Auto) 0.28 (0-0.5) K/uL Baso # (Auto) 0.02 (0-0.2) K/uL Immature Gran # (Auto) 0.02 (0.00-0.02) K/uL Sodium 140 (136-145) mmol/L Potassium 3.6 (3.5-5.1) mmol/L Chloride 108 H (98-107) mmol/L Carbon Dioxide 23 (21-32) mmol/L Anion Gap 9.0 (3-11) BUN 12 (7-18) mg/dl Creatinine 1.03 (0.6-1.4) mg/dl Est Cr Clr Drug Dosing 125.1 ml/min Est GFR ( Amer) 114.8 ml/min Est GFR (Non-Af Amer) 99.1 ml/min BUN/Creatinine Ratio 11.6 (10-20) Glucose 83 (70-99) mg/dl Calcium 9.7 (8.5-10.1) mg/dl Total Bilirubin 0.6 (0.2-1) mg/dl AST 23 (15-37) U/L ALT 35 (12-78) U/L Alkaline Phosphatase 71 (45-117) U/L Total Protein 8.0 (6.4-8.2) gm/dl Albumin 4.9 (3.4-5.0) gm/dl Globulin 3.1 (2.5-4.0) gm/dl Albumin/Globulin Ratio 1.6 (0.9-2) TSH 1.910 (0.300-4.500) uIu/ml Urine Color Urine Appearance (Clear) Urine pH (4.5-7.5) Ur Specific Bowler (1.000-1.030) Urine Protein (Negative) Urine Glucose (UA) (Negative) Urine Ketones (Negative) Urine Blood (Negative) Urine Nitrite (Negative) Urine Bilirubin (Negative) Urine Urobilinogen (Negative) Ur Leukocyte Esterase (Negative) Urine WBC (Auto) (0-5) /hpf Urine RBC (Auto) (0-4) /hpf U Hyaline Cast (Auto) (0-5) /lpf U Epithel Cells (Auto) (0-5) /lpf Urine Bacteria (Auto) (Negative) Salicylates < 1.7 L (2.8-20) mg/dl Urine Opiates Screen (Neg) Ur Methadone, Qual (Neg) Acetaminophen < 2 L (10-30) ug/ml Urine Barbiturates (Neg) Ur Phencyclidine (PCP) (Neg) U Amphetamin/Meth Scrn (Neg) MDMA (Ecstasy) Screen (Neg) U Benzodiazepines Scrn (Neg) Ur Cocaine Metabolite (Neg) U Marijuana (THC) Screen (Neg) Ethyl Alcohol mg/dL (0-3) mg/dl COVID-19 Eval Order SARS-CoV-2 (PCR) (Negative) 02/27/21 02/27/21 02/27/21 Range/Units 20:34 22:59 22:59 WBC (4.8-10.8) K/uL RBC (4.7-6.1) M/uL Hgb (14.0-18.0) g/dL Hct (42-52) % MCV (80-100) fL MCH (25-34) pg MCHC (32-36) g/dL RDW Std Deviation (36.4-46.3) fL RDW Coeff of Sarah (11.5-14.5) % Plt Count (130-400) K/uL MPV (7.4-10.4) fL Immature Gran % (Auto) % Neut % (Auto) % Lymph % (Auto) % Lucas % (Auto) % Eos % (Auto) % Baso % (Auto) % Neut # (Auto) (1.4-6.5) K/uL Lymph # (Auto) (1.2-3.4) K/uL Lucas # (Auto) (0.11-0.59) K/uL Eos # (Auto) (0-0.5) K/uL Baso # (Auto) (0-0.2) K/uL Immature Gran # (Auto) (0.00-0.02) K/uL Sodium (136-145) mmol/L Potassium (3.5-5.1) mmol/L Chloride (98-107) mmol/L Carbon Dioxide (21-32) mmol/L Anion Gap (3-11) BUN (7-18) mg/dl Creatinine (0.6-1.4) mg/dl Est Cr Clr Drug Dosing ml/min Est GFR ( Amer) ml/min Est GFR (Non-Af Amer) ml/min BUN/Creatinine Ratio (10-20) Glucose (70-99) mg/dl Calcium (8.5-10.1) mg/dl Total Bilirubin (0.2-1) mg/dl AST (15-37) U/L ALT (12-78) U/L Alkaline Phosphatase (45-117) U/L Total Protein (6.4-8.2) gm/dl Albumin (3.4-5.0) gm/dl Globulin (2.5-4.0) gm/dl Albumin/Globulin Ratio (0.9-2) TSH (0.300-4.500) uIu/ml Urine Color Yellow Urine Appearance Clear (Clear) Urine pH 5.5 (4.5-7.5) Ur Specific Bowler 1.022 (1.000-1.030) Urine Protein Trace H (Negative) Urine Glucose (UA) Negative (Negative) Urine Ketones 2+ H (Negative) Urine Blood Negative (Negative) Urine Nitrite Negative (Negative) Urine Bilirubin Negative (Negative) Urine Urobilinogen Negative (Negative) Ur Leukocyte Esterase Negative (Negative) Urine WBC (Auto) 1-5 (0-5) /hpf Urine RBC (Auto) 0-4 (0-4) /hpf U Hyaline Cast (Auto) 0 (0-5) /lpf U Epithel Cells (Auto) 5-10 H (0-5) /lpf Urine Bacteria (Auto) Negative (Negative) Salicylates (2.8-20) mg/dl Urine Opiates Screen Neg (Neg) Ur Methadone, Qual Neg (Neg) Acetaminophen (10-30) ug/ml Urine Barbiturates Neg (Neg) Ur Phencyclidine (PCP) Neg (Neg) U Amphetamin/Meth Scrn Neg (Neg) MDMA (Ecstasy) Screen Neg (Neg) U Benzodiazepines Scrn Pos H (Neg) Ur Cocaine Metabolite Neg (Neg) U Marijuana (THC) Screen Pos H (Neg) Ethyl Alcohol mg/dL < 3.0 (0-3) mg/dl COVID-19 Eval Order SARS-CoV-2 (PCR) (Negative) MDM Narrative Patient was seen due to concern for increasing anxiety. The patient has had issues with work and life in general. Patient denies any SI HI or AVH. The patient did try taking Valium today but without any improvement in his symptoms. The patient states that he feels as though he just has increasing adrenaline. The patient does perseverate on being concerned that he may have an elements of autism and is concerned about MS as he has a history of this in his family. The patient is seeking inpatient treatment as the patient feels as though he cannot function and would like to be taken off of benzodiazepines. The patient does feel that none of his medications seem to be working. Patient does complain of some tingling but believe this is likely related to the patient's anxiety. The patient was initially given Ativan. The patient did not have much improvement and thus was ordered ziprasidone. Patient did have improvement. Patient did have blood work completed was he medically cleared seen and evaluated by the caseworker intake and a referral was made to inpatient [facility] patient was accepted to [facility] for voluntary inpatient treatment. Impression & Plan Anxiety Discharge Plan Visit Data Chief Complaint: Mental Health Evaluation Stated Complaint: ANXIETY; DOES NOT WANT TO BE IN [facility] ROOM ED Provider: Kilo Lowe Discharge Problem: Anxiety Forms Stand Alone Forms: [facility] [employer], Suicide Prevention Resources Prescriptions Prescriptions: No Action losartan 50 mg tablet 50 mg PO DAILY RF: 0 lorazepam 0.5 mg tablet 0.5 mg PO BID PRN (Reason: Anxiety) RF: 0 hydroxyzine HCl 10 mg tablet 10 mg PO TID PRN (Reason: Anxiety) RF: 0 escitalopram oxalate 20 mg tablet 30 mg PO DAILY RF: 0 famotidine 40 mg tablet 40 mg PO BID RF: 0 Referrals Referrals: Akbar Lui, [Primary Care Provider] -
[2021-02-27 20:57] LABS: Basophils # (auto) 0.02 K/uL (0-0.2); Basophils % (auto) 0.2 %; Eosinophils # (auto) 0.28 K/uL (0-0.5); Eosinophils % (auto) 3.2 %; Hematocrit (blood only) 43.2 % (42-52); Hemoglobin 15.4 g/dL (14.0-18.0); Immature Granulocytes # (auto) 0.02 K/uL (0.00-0.02); Immature Granulocytes % (auto) 0.2 %; Lymphocytes # (auto) 2.68 K/uL (1.2-3.4); Lymphocytes % (auto) 30.7 %; Mean Corpuscular Hemoglobin 30.4 pg (25-34); Mean Corpuscular Hgb Conc 35.6 g/dL (32-36); Mean Corpuscular Volume 85.4 fL (80-100); Mean Platelet Volume 10.5 fL (7.4-10.4); Monocytes # (auto) 0.56 K/uL (0.11-0.59); Monocytes % (auto) 6.4 %; Neutrophils # (auto) 5.18 K/uL (1.4-6.5); Neutrophils % (auto) 59.3 %; Platelet Count 321 K/uL (130-400); RDW Coefficient of Variation 13.3 % (11.5-14.5); RDW Standard Deviation 41.3 fL (36.4-46.3); Red Blood Count 5.06 M/uL (4.7-6.1); White Blood Count 8.74 K/uL (4.8-10.8)
[2021-02-27] MEDS ORDERED: ZIPRASIDONE 20 MG/ML SDV IM STA (21:18)
[2021-02-27 21:40] LABS: Acetaminophen < 2 ug/ml (10-30); Albumin Level 4.9 gm/dl (3.4-5.0); BUN Creatinine Ratio 11.6 (10-20); Calcium 9.7 mg/dl (8.5-10.1); Creatinine Clr Calc Pharmacy 125.1 ml/min; Est GFR (African American) 114.8 ml/min; Est GFR (Non-African American) 99.1 ml/min; Potassium 3.6 mmol/L (3.5-5.1); Salicylate < 1.7 mg/dl (2.8-20)
[2021-02-27 21:51] LABS: Albumin Globulin Ratio 1.6 (0.9-2); Bilirubin,Total 0.6 mg/dl (0.2-1); Globulin 3.1 gm/dl (2.5-4.0); Thyroid Stimulating Hormone 1.91 uIu/ml (0.300-4.500)
[2021-02-27 23:29] LABS: Appearance Urine Clear (Clear); Bacteria Urine Automated Negative (Negative); Bilirubin Urine Negative (Negative); Blood Urine Negative (Negative); Cast Urine Automated 0 /lpf (0-5); Color Urine Yellow; Glucose Urine UA Negative (Negative); Ketones Urine 2+ (Negative); Leukocyte Esterase Urine Negative (Negative); Nitrite Urine Negative (Negative); Protein Urine Trace (Negative); RBC Urine Automated 0-4 /hpf (0-4); Specific Gravity Urine 1.022 (1.000-1.030); Urobilinogen Urine Negative (Negative); pH Urine 5.5 (4.5-7.5)
[2021-02-27 23:55] LABS: Amphetamines+Metham, Urine Neg (Neg); Barbiturates, Urine Neg (Neg); Benzodiazepine, Urine Pos (Neg); Cocaine, Urine Neg (Neg); MDMA (Ecstacy), Urine Neg (Neg); Methadone, Urine Neg (Neg); Opiate, Urine Neg (Neg); Phencyclidine, Urine Neg (Neg)
[2021-02-28] MEDS ORDERED: ACETAMINOPHEN 325 MG TAB PO PRN (03:24)
[2021-02-28] MEDS ORDERED: SODIUM CHLORIDE 0.65% NA SOLN 45 ML (OCEAN) PRN (03:24)
[2021-02-28] MEDS ORDERED: BISMUTH SUBSALICYLATE LIQD 236 ML PO PRN (03:24)
[2021-02-28] MEDS ORDERED: ALUMINUM/MAGNESIUM SUSP 30 ML UDC PO PRN (03:24)
[2021-02-28] MEDS ORDERED: MAGNESIUM HYDROXIDE SUSP 30 ML UDC PO PRN (03:24)
[2021-02-28] MEDS ORDERED: hydrOXYzine HCl 25 MG TAB PO PRN ×2 (03:24)
[2021-02-28] MEDS ORDERED: LORazepam 0.5 MG TAB PO PRN (03:25)
[2021-02-28] MEDS ORDERED: hydrOXYzine HCl 10 MG TAB PO PRN (04:51)
[2021-02-28] MEDS ORDERED: ESCITALOPRAM OXALATE 20 MG TAB PO SCH (09:00)
[2021-02-28] MEDS ORDERED: LORazepam 1 MG TAB PO PRN ×2 (11:15→11:18)
[2021-02-28] MEDS: NICOTINE 7 MG/24 HR TDSY TD SCH (11:22)
[2021-02-28] MEDS: FAMOTIDINE 40 MG TABLET PO SCH ×2 (11:23→21:33)
[2021-02-28] MEDS: LOSARTAN POTASSIUM 50 MG TAB PO SCH (11:23)
[2021-02-28] MEDS: QUEtiapine FUMARATE 25 MG TABLET PO PRN ×2 (12:08→18:44)
[2021-02-28] MEDS: ESCITALOPRAM OXALATE 20 MG TAB PO SCH (12:08)
--- NOTE | 2021-02-28 14:13 | History & Physical ---
Date of Service February 28, 2021 Impression / Recommendations Impression 25-year-old male presenting with anxiety and insomnia as well as some increased goal oriented activity. Patient is likely on the bipolar spectrum and will benefit from inpatient hospitalization for purposes of safety, stabilization, medication management. Patient appears to have responded well to antipsychotic use in the emergency department after benzodiazepine use was not effective. Patient is agreeable to start low-dose antipsychotics for purposes of mood stabilization and anxiety relief. (1) Unspecified mood [affective] disorder: The patient was admitted to the [facility] ([facility]) on every 15 minute checks (behavioral with suicide precautions for safety. The patient will participate in group, recreational, and milieu therapies and will be offered additional individual and family sessions as clinically appropriate. 02/28/2021atient's dosage of Lexapro will be lowered to 20 mg p.o. every morning, Seroquel 75 mg p.o. nightly will be added to his regimen along with Seroquel 25 mg p.o. as needed every 6 hours anxiety. Target dose of approximately 250 mg of Seroquel Protective Factors Assessment Employed: Yes Psychiatric History Identifying Data SANTINO ESTRADA is a 25-year-old M who currently lives in [facility] with roommates, has a history of anxiety and panic, and was admitted on 02/28/21 02:20 on a 201 voluntary commitment for increasing anxiety and insomnia.. Chief Complaint "I think I might be bipolar or on the spectrum". History of Present Illness As per original note from ED protective services case worker "Met with the patient during Dr. Lowe examination to complete Brief Assessment. The patient reports he has been a mess for a few months with anxiety and panic attacks and feeling like he constantly has adrenaline rushing through his body. The patient reports he took Diazepam today and still had a panic attack and feels like his whole body is tingling and numb. The patient reports he is afraid there is something more than mental health problems and took multiple Autism Spectrum Disorder tests online, all of which he reports he scored high on (also reports there is a family history of Autism). The patient reports he is terrified about what is going on and wants to stop taking benzodiazepines. The patient reports N/V, poor concentration and possible visual hallucinations (thought the room he is in was pink earlier). The patient is requesting inpatient treatment due to his high levels of anxiety and panic and to try to find out if there is more than just mental health involved with his problems. Patient currently denies S/I and H/I. Medical clearance explained. Met with the patient to complete [facility] Psychiatric Mental Health Evaluation. The patient reports his anxiety has been out of control for the past couple of months and benzodiazepines havent been helping (reports he would like to get off of the medications). The patient reports his main stressor is his current living arrangement and his roommates getting mad at him because he is having anxiety / panic attacks and is unable to keep up with cleaning. The patient reports he works at [employer], but is on pause because they want him to take FMLA due to his anxiety and panic. The patient reports poor appetite and will only eat when his stomach hurts. He reports he has poor sleep with an average of 5-6 hours per night with problems falling and staying asleep. The patient reports manic episodes where he feels like hes going to take over the world. The patient reports daily but not constant anxiety symptoms of shaking, crying, fast heart rate and feelings of numbness and tingling (rates current anxiety at 4 after medications but was a 10 upon arrival). The patient reports over the past 2 weeks he has been having panic attacks where he has worsening symptoms of his anxiety. The patient reports he had been drinking heavily at the start of COVID but has cut down considerably from then and denies other drug use (other than prescribed medications). The patient denies suicidal and homicidal ideation (scored a 5 on his Suicide Assessment) as well as self-injurious behavior. The patient is requesting inpatient treatment to deal with his anxiety / panic attacks due to continued deterioration on an outpatient basis. He reports he sees Dr. Sauceda for therapy and is trying to get in with [facility] for [facility]ry." Upon evaluation today patient endorsed the above information is accurate. Patient reports feeling as if he is on the bipolar spectrum as he is endorsing a history of increased goal oriented activity, periods of insomnia with surplus energy, pressured speech and racing thoughts. Patient also acknowledges periods of increased spending. He denies any audio or visual hallucinations. Denies any paranoia. Patient does report a history of mental health problems in his family including his father who is anxious and depressed. He reports an increase of the symptoms especially after having started Lexapro medication, and is reporting frequent panic attacks without relief with benzodiazepines. Patient is agreeable to take antipsychotic medication in efforts to aid with his panic and anxiety. He does report drinking sometimes up to several drinks per day in an attempt to control his anxiety, but states he is no longer getting any enjoyment or relief from drinking. He reports similarly with marijuana that it has been helpful until it was not at which point it started causing him severe anxiety. Patient does acknowledge occasional use but states that he has no di fficulty stopping if necessary. Patient does report one episode of depression around age 19 at which time patient states he was going through a lot of difficult times both with his schooling as well as his relationships. He stated at that time he was having suicidal thoughts, but never acted upon them. Past Psychiatric History Current Psychiatric Diagnosis: Mood disorder Allergies Allergy/AdvReac Type Severity Reaction Status Date / Time No Known Allergies AdvReac Unknown Verified 09/11/19 11:57 Home Medications Medication Instructions Recorded Confirmed Type losartan 50 mg tablet 50 mg PO DAILY 07/03/18 02/28/21 History escitalopram oxalate 20 mg tablet 30 mg PO DAILY 02/28/21 02/28/21 History famotidine 40 mg tablet 40 mg PO BID 02/28/21 02/28/21 History hydroxyzine HCl 10 mg tablet 10 mg PO TID PRN 02/28/21 02/28/21 History lorazepam 0.5 mg tablet 0.5 mg PO BID PRN 02/28/21 02/28/21 History Family History Family History of: Depression and Anxiety Alcohol History Hx of Alcohol Use Over the Past 12 Months: Yes (1-3 beers per day) AUDIT Total Score: 8 Smoking Use Have You Smoked or Used Tobacco Products in the Last 30 Days: Yes tobacco type: e-cigarettes Smoking Status: Current every day smoker Smoking packs per day: 0.25 Substance History Hx of Prescription Med Misuse Over the Past 12 Months: Yes (Lorazepam, takes 1- 1.5 MG BID.) Hx of Over the Counter Med Misuse Over the Past 12 Months: No Hx of Inhalent Misuse Over the Past 12 Months: No Hx of Organic Substance Use Over the Past 12 Months: No Hx of Illegal Substances/Street Drug Use Over Past 12 Months: No Problems as a Result of Past Substance Use: None Identified Personal History Living Arrangements: Apartment Highest Grade Completed: Some College Beliefs That Will Affect Care: None Patient History Medical History (Updated 02/28/21 @ 14:26 by Chandra Dallas MD) Anxiety Bicuspid aortic valve Hypertension Panic attack Family History Other No pertinent family history in first degree relatives Social History Smoking Status: Current every day smoker Tobacco Type: Cigarettes Hx Alcohol Use: No Hx Substance Use: No Preferred Language: Kyrgyz Communication Ability: Effective Beliefs That Will Affect Care: None Feels Safe at Home: Yes Assistive Devices: None Review of Systems Review of Systems: All systems reviewed & are unremarkable except as noted in HPI & below Physical Exam Psychiatric: Orientation: alert and oriented x 3 Apperance: appropriately dressed Eye Contact: good eye contact Motor Behavior: no abnormal motor movements Speech: normal rate/rhythm/volume of speech Affect: + anxious affect Mood: + anxious mood Thought Process: linear/logical thought process Thought Content: reality based without delusions Suicidal Thoughts: denies suicidal thoughts and denies suicidal plan Homicidal Thoughts: denies homicidal thoughts and denies homicidal plan Hallucinations: no auditory hallucinations and no visual hallucinations Cognition: recent memory grossly intact Estimated Intelligence: consistent with education level Insight: + fair insight Judgement: + fair judgement Vital Signs (Past 24 Hours): Last Vital Signs Temp 36.4 C L 02/28/21 06:21 Pulse 75 02/28/21 06:25 Resp 16 02/28/21 06:21 BP 142/76 H 02/28/21 06:25 Pulse Ox 98 02/28/21 02:48 Results & Data ([facility]) Laboratory Results Laboratory Results - last 24 hr 02/27/21 02/27/21 02/27/21 20:20 20:20 20:20 WBC RBC Hgb Hct MCV MCH MCHC RDW Std Deviation RDW Coeff of Sarah Plt Count MPV Immature Gran % (Auto) Neut % (Auto) Lymph % (Auto) [place] % (Auto) Eos % (Auto) Baso % (Auto) Neut # (Auto) Lymph # (Auto) [place] # (Auto) Eos # (Auto) Baso # (Auto) Immature Gran # (Auto) Sodium Potassium Chloride Carbon Dioxide Anion Gap BUN Creatinine Est Cr Clr Drug Dosing Est GFR ( Amer) Est GFR (Non-Af Amer) BUN/Creatinine Ratio Glucose Calcium Total Bilirubin AST ALT Alkaline Phosphatase Total Protein Albumin Globulin Albumin/Globulin Ratio TSH Urine Color Urine Appearance Urine pH Ur Specific [place] Urine Protein Urine Glucose (UA) Urine Ketones Urine Blood Urine Nitrite Urine Bilirubin Urine Urobilinogen Ur Leukocyte Esterase Urine WBC (Auto) Urine RBC (Auto) U Hyaline Cast (Auto) U Epithel Cells (Auto) Urine Bacteria (Auto) Salicylates Urine Opiates Screen Ur Methadone, Qual Acetaminophen Urine Barbiturates Ur Phencyclidine (PCP) U Amphetamin/Meth Scrn MDMA (Ecstasy) Screen U OH-Alprazolam Confrm U Benzodiazepines Scrn 7-Amino Clonazepam Ur Nordiazepam Confirm U OH-ethylflurazepam U Lorazepam Cnf GC/MS U Oxazepam Confm GC/MS Ur Temazepam Confirm U OH-Triazolam Confirm U OH-Midazolam Confirm Ur Cocaine Metabolite U Marijuana (THC) Screen U Marijuana THC Carboxy Drug Screen Comment Ethyl Alcohol mg/dL COVID-19 Eval Order Cancelled Covid19 at [facility] SARS-CoV-2 (PCR) NEGATIVE 02/27/21 02/27/21 02/27/21 20:34 20:34 20:34 WBC 8.74 RBC 5.06 Hgb 15.4 Hct 43.2 MCV 85.4 MCH 30.4 MCHC 35.6 RDW Std Deviation 41.3 RDW Coeff of Sarah 13.3 Plt Count 321 MPV 10.5 H Immature Gran % (Auto) 0.2 Neut % (Auto) 59.3 Lymph % (Auto) 30.7 [place] % (Auto) 6.4 Eos % (Auto) 3.2 Baso % (Auto) 0.2 Neut # (Auto) 5.18 Lymph # (Auto) 2.68 [place] # (Auto) 0.56 Eos # (Auto) 0.28 Baso # (Auto) 0.02 Immature Gran # (Auto) 0.02 Sodium 140 Potassium 3.6 Chloride 108 H Carbon Dioxide 23 Anion Gap 9.0 BUN 12 Creatinine 1.03 Est Cr Clr Drug Dosing 125.1 Est GFR ( Amer) 114.8 Est GFR (Non-Af Amer) 99.1 BUN/Creatinine Ratio 11.6 Glucose 83 Calcium 9.7 Total Bilirubin 0.6 AST 23 ALT 35 Alkaline Phosphatase 71 Total Protein 8.0 Albumin 4.9 Globulin 3.1 Albumin/Globulin Ratio 1.6 TSH 1.910 Urine Color Urine Appearance Urine pH Ur Specific [place] Urine Protein Urine Glucose (UA) Urine Ketones Urine Blood Urine Nitrite Urine Bilirubin Urine Urobilinogen Ur Leukocyte Esterase Urine WBC (Auto) Urine RBC (Auto) U Hyaline Cast (Auto) U Epithel Cells (Auto) Urine Bacteria (Auto) Salicylates < 1.7 L Urine Opiates Screen Ur Methadone, Qual Acetaminophen < 2 L Urine Barbiturates Ur Phencyclidine (PCP) U Amphetamin/Meth Scrn MDMA (Ecstasy) Screen U OH-Alprazolam Confrm U Benzodiazepines Scrn 7-Amino Clonazepam Ur Nordiazepam Confirm U OH-ethylflurazepam U Lorazepam Cnf GC/MS U Oxazepam Confm GC/MS Ur Temazepam Confirm U OH-Triazolam Confirm U OH-Midazolam Confirm Ur Cocaine Metabolite U Marijuana (THC) Screen U Marijuana THC Carboxy Drug Screen Comment Ethyl Alcohol mg/dL COVID-19 Eval Order SARS-CoV-2 (PCR) 02/27/21 02/27/21 02/27/21 20:34 22:59 22:59 WBC RBC Hgb Hct MCV MCH MCHC RDW Std Deviation RDW Coeff of Sarah Plt Count MPV Immature Gran % (Auto) Neut % (Auto) Lymph % (Auto) [place] % (Auto) Eos % (Auto) Baso % (Auto) Neut # (Auto) Lymph # (Auto) [place] # (Auto) Eos # (Auto) Baso # (Auto) Immature Gran # (Auto) Sodium Potassium Chloride Carbon Dioxide Anion Gap BUN Creatinine Est Cr Clr Drug Dosing Est GFR ( Amer) Est GFR (Non-Af Amer) BUN/Creatinine Ratio Glucose Calcium Total Bilirubin AST ALT Alkaline Phosphatase Total Protein Albumin Globulin Albumin/Globulin Ratio TSH Urine Color Yellow Urine Appearance Clear Urine pH 5.5 Ur Specific [place] 1.022 Urine Protein Trace H Urine Glucose (UA) Negative Urine Ketones 2+ H Urine Blood Negative Urine Nitrite Negative Urine Bilirubin Negative Urine Urobilinogen Negative Ur Leukocyte Esterase Negative Urine WBC (Auto) 1-5 Urine RBC (Auto) 0-4 U Hyaline Cast (Auto) 0 U Epithel Cells (Auto) 5-10 H Urine Bacteria (Auto) Negative Salicylates Urine Opiates Screen Neg Ur Methadone, Qual Neg Acetaminophen Urine Barbiturates Neg Ur Phencyclidine (PCP) Neg U Amphetamin/Meth Scrn Neg MDMA (Ecstasy) Screen Neg U OH-Alprazolam Confrm U Benzodiazepines Scrn Pos H 7-Amino Clonazepam Ur Nordiazepam Confirm U OH-ethylflurazepam U Lorazepam Cnf GC/MS U Oxazepam Confm GC/MS Ur Temazepam Confirm U OH-Triazolam Confirm U OH-Midazolam Confirm Ur Cocaine Metabolite Neg U Marijuana (THC) Screen Pos H U Marijuana THC Carboxy Drug Screen Comment Ethyl Alcohol mg/dL < 3.0 COVID-19 Eval Order SARS-CoV-2 (PCR) 02/27/21 22:59 WBC RBC Hgb Hct MCV MCH MCHC RDW Std Deviation RDW Coeff of Sarah Plt Count MPV Immature Gran % (Auto) Neut % (Auto) Lymph % (Auto) [place] % (Auto) Eos % (Auto) Baso % (Auto) Neut # (Auto) Lymph # (Auto) [place] # (Auto) Eos # (Auto) Baso # (Auto) Immature Gran # (Auto) Sodium Potassium Chloride Carbon Dioxide Anion Gap BUN Creatinine Est Cr Clr Drug Dosing Est GFR ( Amer) Est GFR (Non-Af Amer) BUN/Creatinine Ratio Glucose Calcium Total Bilirubin AST ALT Alkaline Phosphatase Total Protein Albumin Globulin Albumin/Globulin Ratio TSH Urine Color Urine Appearance Urine pH Ur Specific [place] Urine Protein Urine Glucose (UA) Urine Ketones Urine Blood Urine Nitrite Urine Bilirubin Urine Urobilinogen Ur Leukocyte Esterase Urine WBC (Auto) Urine RBC (Auto) U Hyaline Cast (Auto) U Epithel Cells (Auto) Urine Bacteria (Auto) Salicylates Urine Opiates Screen Ur Methadone, Qual Acetaminophen Urine Barbiturates Ur Phencyclidine (PCP) U Amphetamin/Meth Scrn MDMA (Ecstasy) Screen U OH-Alprazolam Confrm Pending U Benzodiazepines Scrn 7-Amino Clonazepam Pending Ur Nordiazepam Confirm Pending U OH-ethylflurazepam Pending U Lorazepam Cnf GC/MS Pending U Oxazepam Confm GC/MS Pending Ur Temazepam Confirm Pending U OH-Triazolam Confirm Pending U OH-Midazolam Confirm Pending Ur Cocaine Metabolite U Marijuana (THC) Screen U Marijuana THC Carboxy Pending Drug Screen Comment Pending Ethyl Alcohol mg/dL COVID-19 Eval Order SARS-CoV-2 (PCR) Current Inpatient Medications Current Inpatient Medications: Current Inpatient Medications Acetaminophen (Acetaminophen 325 Mg Tab) 650 mg PO Q4H PRN PRN Reason: Headache or Minor Fever Stop: 03/30/21 03:23 Al Hydrox/Mg Hydrox/Simethicone (Aluminum/Magnesium Susp 30 Ml Udc) 30 ml PO Q4H PRN PRN Reason: GI Upset Stop: 03/30/21 03:23 Bismuth Subsalicylate (Bismuth Subsalicylate Liqd 236 Ml) 15 ml PO PRN PRN PRN Reason: Loose Stool Stop: 03/30/21 03:23 Escitalopram Oxalate (Escitalopram Oxalate 20 Mg Tab) 20 mg PO QAM [facility] Stop: 03/30/21 11:29 Last Admin: 02/28/21 12:08 Dose: 20 mg Documented by: Famotidine (Famotidine 40 Mg Tablet) 40 mg PO BID [facility] Stop: 03/30/21 08:59 Last Admin: 02/28/21 11:23 Dose: 40 mg Documented by: Lorazepam (Lorazepam 1 Mg Tab) 2 mg PO BID PRN PRN Reason: Panic attack Stop: 03/30/21 03:24 Losartan Potassium (Losartan Potassium 50 Mg Tab) 50 mg PO QAM [facility] Stop: 03/30/21 08:59 Last Admin: 02/28/21 11:23 Dose: 50 mg Documented by: Magnesium Hydroxide (Magnesium Hydroxide Susp 30 Ml Udc) 30 ml PO DAILY PRN PRN Reason: Constipation Stop: 03/30/21 03:23 Miscellaneous (Remove Nicoderm Patch) 1 ea N/A DAILY@0859 [facility] Stop: 03/30/21 08:58 Last Admin: 02/28/21 11:23 Dose: Not Given Documented by: Nicotine (Nicotine 7 Mg/24 Hr Tdsy) 7 mg TD QAM [facility] Stop: 03/30/21 08:59 Last Admin: 02/28/21 11:22 Dose: Not Given Documented by: Quetiapine Fumarate (Quetiapine Fumarate 25 Mg Tablet) 25 mg PO Q6 PRN PRN Reason: Anxiety Stop: 03/30/21 11:59 Last Admin: 02/28/21 12:08 Dose: 25 mg Documented by: Quetiapine Fumarate (Quetiapine Fumarate 25 Mg Tablet) 75 mg PO HS [facility] Stop: 03/30/21 21:59 Sodium Chloride (Sodium Chloride 0.65% Na Soln 45 Ml ([place])) 1 - 2 sprays NA PRN PRN PRN Reason: Nasal Dryness/Congestion Stop: 03/30/21 03:23
[2021-02-28] MEDS ORDERED: QUEtiapine FUMARATE 25 MG TABLET PO SCH (22:00)
[2021-03-01] MEDS: LOSARTAN POTASSIUM 50 MG TAB PO SCH (08:59)
[2021-03-01] MEDS: NICOTINE 7 MG/24 HR TDSY TD SCH (08:59)
[2021-03-01] MEDS: FAMOTIDINE 40 MG TABLET PO SCH ×2 (08:59→21:05)
[2021-03-01] MEDS: ESCITALOPRAM OXALATE 20 MG TAB PO SCH (08:59)
--- NOTE | 2021-03-01 10:53 | Psychiatric Progress Note ---
Date of Service March 01, 2021 Impression / Recommendations Impression 25-year-old male presenting with anxiety and insomnia as well as some increased goal oriented activity. Patient is likely on the bipolar spectrum and will benefit from inpatient hospitalization for purposes of safety, stabilization, medication management. Patient appears to have responded well to antipsychotic use in the emergency department after benzodiazepine use was not effective. Patient is agreeable to start low-dose antipsychotics for purposes of mood stabilization and anxiety relief. (1) Unspecified mood [affective] disorder: The patient was admitted to the [facility] ([facility]) on every 15 minute checks (behavioral with suicide precautions for safety. The patient will participate in group, recreational, and milieu therapies and will be offered additional individual and family sessions as clinically appropriate. 03/01/2021atient appears to be responding well to the medication. Will increase nightly dose of Seroquel to 150 mg p.o. nightly, Lexapro dosage will remain at 20 mg p.o. every morning 02/28/2021atient's dosage of Lexapro will be lowered to 20 mg p.o. every morning, Seroquel 75 mg p.o. nightly will be added to his regimen along with Seroquel 25 mg p.o. as needed every 6 hours anxiety. Target dose of approximately 250 mg of Seroquel Protective Factors Assessment Employed: Yes Interval History Chief Complaint "I'm okay, I don't know if i have to be here much longer". Review of Systems Sleep Information Total Hours of Sleep: 5.5 Sleep Comments: Patient arrived to unit at 0255 and appeared to sleep well after admission process was finished. Meal Information Percent Meal Consumed - Breakfast: 10 Percent Meal Consumed - Lunch: 90 Percent Meal Consumed - Dinner: 80 Nutrition Comment: Pt said that he usually doesn't eat a lot at breakfast Subjective Subjective Patient seen, chart reviewed and case discussed with treatment team, nursing and social work. Patient reports a good night of sleep and strong appetite. No side effects reported or observed. Regarding mood, patient reports some improvement which they attribute to the medications as well as the therapy they have received on the unit. States that the Seroquel medication is helping him to feel more calm. Also reports receiving a good night of sleep on the medication. I spent 30 minutes with the patient, 50% of which was dedicated to counselling and coordination of care. Physical Exam Psychiatric Orientation: alert and oriented x 3 Apperance: appropriately dressed Eye Contact: good eye contact Motor Behavior: no abnormal motor movements Speech: normal rate/rhythm/volume of speech Affect: + anxious affect Mood: + anxious mood Thought Process: linear/logical thought process Thought Content: reality based without delusions Suicidal Thoughts: denies suicidal thoughts and denies suicidal plan Homicidal Thoughts: denies homicidal thoughts and denies homicidal plan Hallucinations: no auditory hallucinations and no visual hallucinations Cognition: recent memory grossly intact Estimated Intelligence: consistent with education level Insight: + fair insight Judgement: + fair judgement Vital Signs (Past 24 Hours) Last Vital Signs Temp 36.3 C L 03/01/21 06:00 Pulse 89 03/01/21 06:21 Resp 18 03/01/21 06:00 BP 164/85 H 03/01/21 06:21 Pulse Ox 98 02/28/21 02:48 Results & Data ([facility]) Current Inpatient Medications Current Inpatient Medications: Current Inpatient Medications Acetaminophen (Acetaminophen 325 Mg Tab) 650 mg PO Q4H PRN PRN Reason: Headache or Minor Fever Stop: 03/30/21 03:23 Al Hydrox/Mg Hydrox/Simethicone (Aluminum/Magnesium Susp 30 Ml Udc) 30 ml PO Q4H PRN PRN Reason: GI Upset Stop: 03/30/21 03:23 Bismuth Subsalicylate (Bismuth Subsalicylate Liqd 236 Ml) 15 ml PO PRN PRN PRN Reason: Loose Stool Stop: 03/30/21 03:23 Escitalopram Oxalate (Escitalopram Oxalate 20 Mg Tab) 20 mg PO QAM [facility] Stop: 03/30/21 11:29 Last Admin: 03/01/21 08:59 Dose: 20 mg Documented by: Famotidine (Famotidine 40 Mg Tablet) 40 mg PO BID [facility] Stop: 03/30/21 08:59 Last Admin: 03/01/21 08:59 Dose: 40 mg Documented by: Lorazepam (Lorazepam 1 Mg Tab) 2 mg PO BID PRN PRN Reason: Panic attack Stop: 03/30/21 03:24 Last Admin: 02/28/21 23:07 Dose: 2 mg Documented by: Losartan Potassium (Losartan Potassium 50 Mg Tab) 50 mg PO QAM [facility] Stop: 03/30/21 08:59 Last Admin: 03/01/21 08:59 Dose: 50 mg Documented by: Magnesium Hydroxide (Magnesium Hydroxide Susp 30 Ml Udc) 30 ml PO DAILY PRN PRN Reason: Constipation Stop: 03/30/21 03:23 Miscellaneous (Remove Nicoderm Patch) 1 ea N/A DAILY@0859 [facility] Stop: 03/30/21 08:58 Last Admin: 03/01/21 08:59 Dose: Not Given Documented by: Nicotine (Nicotine 7 Mg/24 Hr Tdsy) 7 mg TD QAM [facility] Stop: 03/30/21 08:59 Last Admin: 03/01/21 08:59 Dose: Not Given Documented by: Quetiapine Fumarate (Quetiapine Fumarate 25 Mg Tablet) 25 mg PO Q6 PRN PRN Reason: Anxiety Stop: 03/30/21 11:59 Last Admin: 02/28/21 18:44 Dose: 25 mg Documented by: Quetiapine Fumarate (Quetiapine Fumarate 25 Mg Tablet) 75 mg PO HS [facility] Stop: 03/30/21 21:59 Last Admin: 02/28/21 21:33 Dose: 75 mg Documented by: Sodium Chloride (Sodium Chloride 0.65% Na Soln 45 Ml ([place])) 1 - 2 sprays NA PRN PRN PRN Reason: Nasal Dryness/Congestion Stop: 03/30/21 03:23 Mental Health & Subst Abuse Tx Therapist Name of Therapist: Dr. Carranza [facility] Date of Therapist Appointment: 03/07/21 Time of Therapist Appointment: 2:40 p.m. Therapy Appointment Comment: Telehealth video Entry Level Software Engineer Name of Entry Level Software Engineer: . Post Discharge Appointments Primary Care Physician Name Of Family Doctor: [facility] - Dr[facility] Akbar Lui [facility] Date of Appointment with PCP: 05/23/21 Time of Appointment with PCP: 2:20 p.m. Provider Appointment Comment: [address] [facility] Contact Information Discharge Discharge Address: [address] [place] [address], [address], [place] [address]
[2021-03-01] MEDS: QUEtiapine FUMARATE 25 MG TABLET PO PRN ×2 (16:21→23:48)
[2021-03-01] MEDS ORDERED: QUEtiapine FUMARATE 25 MG TABLET PO SCH (22:00)
[2021-03-02] MEDS: NICOTINE 7 MG/24 HR TDSY TD SCH (08:50)
[2021-03-02] MEDS: ESCITALOPRAM OXALATE 20 MG TAB PO SCH (08:50)
[2021-03-02] MEDS: LOSARTAN POTASSIUM 50 MG TAB PO SCH (08:50)
[2021-03-02] MEDS: FAMOTIDINE 40 MG TABLET PO SCH ×2 (08:50→21:13)
--- NOTE | 2021-03-02 14:30 | Psychiatric Progress Note ---
Date of Service March 02, 2021 Impression / Recommendations Impression 25-year-old male presenting with anxiety and insomnia as well as some increased goal oriented activity. Patient is likely on the bipolar spectrum and will benefit from inpatient hospitalization for purposes of safety, stabilization, medication management. Patient appears to have responded well to antipsychotic use in the emergency department after benzodiazepine use was not effective. Patient is agreeable to start low-dose antipsychotics for purposes of mood stabilization and anxiety relief. (1) Unspecified mood [affective] disorder: The patient was admitted to the [facility] ([facility] health unit) on every 15 minute checks (behavioral with suicide precautions for safety. The patient will participate in group, recreational, and milieu therapies and will be offered additional individual and family sessions as clinically appropriate. 03/01/2021atient appears to be responding well to the medication. Will increase nightly dose of Seroquel to 150 mg p.o. nightly, Lexapro dosage will remain at 20 mg p.o. every morning 02/28/2021atient's dosage of Lexapro will be lowered to 20 mg p.o. every morning, Seroquel 75 mg p.o. nightly will be added to his regimen along with Seroquel 25 mg p.o. as needed every 6 hours anxiety. Target dose of approximately 250 mg of Seroquel Protective Factors Assessment Employed: Yes Interval History Identifying Information 25-year-old male who presented with complaints of anxiety and panic attack but also acknowledges bipolar symptoms including insomnia, delusions, increased goal oriented activity Chief Complaint "my mood is up and down". Review of Systems Sleep Information Total Hours of Sleep: 6 Sleep Comments: pt on q-15 minute checks Meal Information Percent Meal Consumed - Breakfast: 100 Percent Meal Consumed - Lunch: 100 Percent Meal Consumed - Dinner: 100 Nutrition Comment: Pt said that he usually doesn't eat a lot at breakfast Subjective Subjective Patient seen, chart reviewed and case discussed with treatment team, nursing and social work. Patient reports a good night of sleep and strong appetite. No side effects r eported or observed. Regarding mood, patient reports some improvement which they attribute to the medications as well as the therapy they have received on the unit. His mood is still labile and at times he is upset and frustrated from seemingly delusional thought processes. Last night he was certain that a friend of his was going to hurt his cat. He was assured after calling the police and having them check up on his friend. He did refuse to take the increased dosage of Seroquel last night due to the quantity of pills. He was given a different prescription for fewer pills and explained that the target dosage would be approximately 300 mg of Seroquel to aid with mood stability. Patient expressed agreement and understanding. I spent 30 minutes with the patient, 50% of which was dedicated to counselling and coordination of care. Physical Exam Psychiatric Orientation: alert and oriented x 3 Apperance: appropriately dressed Eye Contact: good eye contact Motor Behavior: no abnormal motor movements Speech: normal rate/rhythm/volume of speech Affect: + anxious affect Mood: + anxious mood Thought Process: linear/logical thought process Thought Content: reality based without delusions Suicidal Thoughts: denies suicidal thoughts and denies suicidal plan Homicidal Thoughts: denies homicidal thoughts and denies homicidal plan Hallucinations: no auditory hallucinations and no visual hallucinations Cognition: recent memory grossly intact Estimated Intelligence: consistent with education level Insight: + fair insight Judgement: + fair judgement Vital Signs (Past 24 Hours) Last Vital Signs Temp 36.3 C L 03/02/21 06:49 Pulse 76 03/02/21 06:50 Resp 16 03/02/21 06:49 BP 154/87 H 03/02/21 06:50 Pulse Ox 98 02/28/21 02:48 Results & Data ([facility]) Current Inpatient Medications Current Inpatient Medications: Current Inpatient Medications Acetaminophen (Acetaminophen 325 Mg Tab) 650 mg PO Q4H PRN PRN Reason: Headache or Minor Fever Stop: 03/30/21 03:23 Al Hydrox/Mg Hydrox/Simethicone (Aluminum/Magnesium Susp 30 Ml Udc) 30 ml PO Q4H PRN PRN Reason: GI Upset Stop: 03/30/21 03:23 Bismuth Subsalicylate (Bismuth Subsalicylate Liqd 236 Ml) 15 ml PO PRN PRN PRN Reason: Loose Stool Stop: 03/30/21 03:23 Escitalopram Oxalate (Escitalopram Oxalate 20 Mg Tab) 20 mg PO QAM [facility] Stop: 03/30/21 11:29 Last Admin: 03/02/21 08:50 Dose: 20 mg Documented by: Famotidine (Famotidine 40 Mg Tablet) 40 mg PO BID [facility] Stop: 03/30/21 08:59 Last Admin: 03/02/21 08:50 Dose: 40 mg Documented by: Lorazepam (Lorazepam 1 Mg Tab) 2 mg PO BID PRN PRN Reason: Panic attack Stop: 03/30/21 03:24 Last Admin: 02/28/21 23:07 Dose: 2 mg Documented by: Losartan Potassium (Losartan Potassium 50 Mg Tab) 50 mg PO QAM [facility] Stop: 03/30/21 08:59 Last Admin: 03/02/21 08:50 Dose: 50 mg Documented by: Magnesium Hydroxide (Magnesium Hydroxide Susp 30 Ml Udc) 30 ml PO DAILY PRN PRN Reason: Constipation Stop: 03/30/21 03:23 Miscellaneous (Remove Nicoderm Patch) 1 ea N/A DAILY@858 [facility] Stop: 03/30/21 08:58 Last Admin: 03/02/21 08:50 Dose: Not Given Documented by: Nicotine (Nicotine 7 Mg/24 Hr Tdsy) 7 mg TD QAM [facility] Stop: 03/30/21 08:59 Last Admin: 03/02/21 08:50 Dose: Not Given Documented by: Quetiapine Fumarate (Quetiapine Fumarate 25 Mg Tablet) 25 mg PO Q6 PRN PRN Reason: Anxiety Stop: 03/30/21 11:59 Last Admin: 03/01/21 23:48 Dose: 25 mg Documented by: Quetiapine Fumarate (Quetiapine Fumarate 100 Mg Tablet) 150 mg PO HS [facility] Stop: 04/01/21 21:59 Sodium Chloride (Sodium Chloride 0.65% Na Soln 45 Ml ([place])) 1 - 2 sprays NA PRN PRN PRN Reason: Nasal Dryness/Congestion Stop: 03/30/21 03:23 Mental Health & Subst Abuse Tx Psychiatrist Name of Psychiatrist: made referral to [facility]- waiting for return call to schedule/set up Therapist Name of Therapist: Dr. Carranza through [facility] The[facility] Date of Therapist Appointment: 03/07/21 Time of Therapist Appointment: 2:40 p.m. Therapy Appointment Comment: Telehealth video Supervisor Winter Name of Supervisor Winter: . Post Discharge Appointments Primary Care Physician Name Of Family Doctor: Antonio - Dr. Akbar Lui Primary Care Date of Appointment with PCP: 05/23/21 Time of Appointment with PCP: 2:20 p.m. Provider Appointment Comment: [facility] Contact Information Discharge Discharge Address: [address] [place] [address], [address] , [place] [address]
[2021-03-02 21:48] LABS: Hydro-Alp Ur, GC/MS NEGATIVE ng/mL (<25); Hydroxyethylflurazepam, Conf NEGATIVE ng/mL (<50); Hydroxymidazolam Ur, GC/MS NEGATIVE ng/mL (<50); Hydroxytriazolam NEGATIVE ng/mL (<50); Lorazepam, Ur GC/MS 310 ng/mL (<50); Marijuana Quant, GCMS Urine 1265 ng/mL (<5); Nordiazepam, Confirm 102 ng/mL (<50); Oxazepam Ur, GC/MS NEGATIVE ng/mL (<50); Temazepam, Confirm NEGATIVE ng/mL (<50)
[2021-03-02] MEDS ORDERED: QUEtiapine FUMARATE 100 MG TABLET PO SCH (22:00)
[2021-03-03] MEDS: LOSARTAN POTASSIUM 50 MG TAB PO SCH (08:58)
[2021-03-03] MEDS: ESCITALOPRAM OXALATE 20 MG TAB PO SCH (08:58)
[2021-03-03] MEDS: NICOTINE 7 MG/24 HR TDSY TD SCH (08:59)
[2021-03-03] MEDS: FAMOTIDINE 40 MG TABLET PO SCH ×2 (08:59→21:12)
--- NOTE | 2021-03-03 12:07 | Psychiatric Progress Note ---
Date of Service March 03, 2021 Impression / Recommendations Impression 25-year-old male presenting with anxiety and insomnia as well as some increased goal oriented activity. Patient is likely on the bipolar spectrum and will benefit from inpatient hospitalization for purposes of safety, stabilization, medication management. Patient appears to have responded well to antipsychotic use in the emergency department after benzodiazepine use was not effective. Patient is agreeable to start low-dose antipsychotics for purposes of mood stabilization and anxiety relief. (1) Unspecified mood [affective] disorder: The patient was admitted to the [facility]) on every 15 minute checks (behavioral with suicide precautions for safety. The patient will participate in group, recreational, and milieu therapies and will be offered additional individual and family sessions as clinically appropriate. 03/03/2021we will plan to increase Seroquel to 250 mg tonight. Lexapro dosage to remain at 20 mg p.o. every morning. 03/01/2021atient appears to be responding well to the medication. Will increase nightly dose of Seroquel to 150 mg p.o. nightly, Lexapro dosage will remain at 20 mg p.o. every morning 02/28/2021atient's dosage of Lexapro will be lowered to 20 mg p.o. every morning, Seroquel 75 mg p.o. nightly will be added to his regimen along with Seroquel 25 mg p.o. as needed every 6 hours anxiety. Target dose of approximately 250 mg of Seroquel Protective Factors Assessment Employed: Yes Interval History Identifying Information 25-year-old male who presented with complaints of anxiety and panic attack but also acknowledges bipolar symptoms including insomnia, delusions, increased goal oriented activity Chief Complaint "I think i'm starting to feel better". Review of Systems Sleep Information Total Hours of Sleep: 6.5 Sleep Comments: pt on q-15 minute checks Meal Information Percent Meal Consumed - Breakfast: 100 Percent Meal Consumed - Lunch: 100 Percent Meal Consumed - Dinner: 95 Nutrition Comment: Pt said that he usually doesn't eat a lot at breakfast Subjective Subjective Patient seen, chart reviewed and case discussed with treatment team, nursing and social work. Patient reports a good night of sleep and strong appetite. No side effects reported or observed. Regarding mood, patient reports some improvement which they attribute to the medications as well as the therapy they have received on the unit. Patient still displaying some lability, although significantly decreased from admission. He is in agreement with the plan to continue to slowly increase the Seroquel to a target dosage of approximately 300 mg. Patient reports that his anxiety has lessened, and he feels more in control of his thoughts. I spent 30 minutes with the patient, 50% of which was dedicated to counselling and coordination of care. Physical Exam Psychiatric Orientation: alert and oriented x 3 Apperance: appropriately dressed Eye Contact: good eye contact Motor Behavior: no abnormal motor movements Speech: normal rate/rhythm/volume of speech Affect: + anxious affect Mood: + anxious mood Thought Process: linear/logical thought process Thought Content: reality based without delusions Suicidal Thoughts: denies suicidal thoughts and denies suicidal plan Homicidal Thoughts: denies homicidal thoughts and denies homicidal plan Hallucinations: no auditory hallucinations and no visual hallucinations Cognition: recent memory grossly intact Estimated Intelligence: consistent with education level Insight: + fair insight Judgement: + fair judgement Vital Signs (Past 24 Hours) Last Vital Signs Temp 36.3 C L 03/03/21 06:48 Pulse 97 H 03/03/21 06:48 Resp 16 03/03/21 06:48 BP 148/80 H 03/03/21 06:48 Pulse Ox 98 02/28/21 02:48 Results & Data ([facility]) Laboratory Results Laboratory Results - last 24 hr 02/27/21 22:59 U OH-Alprazolam Confrm NEGATIVE 7-Amino Clonazepam SEE NOTE Ur Nordiazepam Confirm 102 H U OH-ethylflurazepam NEGATIVE U Lorazepam Cnf GC/MS 310 H U Oxazepam Confm GC/MS NEGATIVE Ur Temazepam Confirm NEGATIVE U OH-Triazolam Confirm NEGATIVE U OH-Midazolam Confirm NEGATIVE U Marijuana THC Carboxy 1265 H Drug Screen Comment SEE NOTE Current Inpatient Medications Current Inpatient Medications: Current Inpatient Medications Acetaminophen (Acetaminophen 325 Mg Tab) 650 mg PO Q4H PRN PRN Reason: Headache or Minor Fever Stop: 03/30/21 03:23 Al Hydrox/Mg Hydrox/Simethicone (Aluminum/Magnesium Susp 30 Ml Udc) 30 ml PO Q4H PRN PRN Reason: GI Upset Stop: 03/30/21 03:23 Bismuth Subsalicylate (Bismuth Subsalicylate Liqd 236 Ml) 15 ml PO PRN PRN PRN Reason: Loose Stool Stop: 03/30/21 03:23 Escitalopram Oxalate (Escitalopram Oxalate 20 Mg Tab) 20 mg PO QAM [facility] Stop: 03/30/21 11:29 Last Admin: 03/03/21 08:58 Dose: 20 mg Documented by: Famotidine (Famotidine 40 Mg Tablet) 40 mg PO BID [facility] Stop: 03/30/21 08:59 Last Admin: 03/03/21 08:59 Dose: 40 mg Documented by: Lorazepam (Lorazepam 1 Mg Tab) 2 mg PO BID PRN PRN Reason: Panic attack Stop: 03/30/21 03:24 Last Admin: 02/28/21 23:07 Dose: 2 mg Documented by: Losartan Potassium (Losartan Potassium 50 Mg Tab) 50 mg PO QAM [facility] Stop: 03/30/21 08:59 Last Admin: 03/03/21 08:58 Dose: 50 mg Documented by: Magnesium Hydroxide (Magnesium Hydroxide Susp 30 Ml Udc) 30 ml PO DAILY PRN PRN Reason: Constipation Stop: 03/30/21 03:23 Miscellaneous (Remove Nicoderm Patch) 1 ea N/A DAILY@0859 [facility] Stop: 03/30/21 08:58 Last Admin: 03/03/21 08:59 Dose: Not Given Documented by: Nicotine (Nicotine 7 Mg/24 Hr Tdsy) 7 mg TD QAM [facility] Stop: 03/30/21 08:59 Last Admin: 03/03/21 08:59 Dose: Not Given Documented by: Quetiapine Fumarate (Quetiapine Fumarate 25 Mg Tablet) 25 mg PO Q6 PRN PRN Reason: Anxiety Stop: 03/30/21 11:59 Last Admin: 03/01/21 23:48 Dose: 25 mg Documented by: Quetiapine Fumarate (Quetiapine Fumarate 100 Mg Tablet) 250 mg PO HS [facility] Stop: 04/02/21 21:59 Sodium Chloride (Sodium Chloride 0.65% Na Soln 45 Ml ([place])) 1 - 2 sprays NA PRN PRN PRN Reason: Nasal Dryness/Congestion Stop: 03/30/21 03:23 Mental Health & Subst Abuse Tx Psychiatrist Name of Psychiatrist: [facility] Psychiatrist's Psychiatric Appointment Comment: [address] [place] [address] Therapist Name of Therapist: Antonio Carranza Therapist's Date of Therapist Appointment: 03/07/21 Time of Therapist Appointment: 2:40 p.m. Therapy Appointment Comment: Telehealth video Photo Stylist Name of Photo Stylist: . Post Discharge Appointments Primary Care Physician Name Of Family Doctor: Antonio Lui Primary Care Date of Appointment with PCP: 05/23/21 Time of Appointment with PCP: 2:20 p.m. Provider Appointment Comment: [address] [place] [address] Contact Information Discharge Discharge Address: [address] [place] [address], [place] [address], [place] [address]
[2021-03-03] MEDS: QUEtiapine FUMARATE 100 MG TABLET PO SCH (21:13)
[2021-03-04] MEDS: LOSARTAN POTASSIUM 50 MG TAB PO SCH (09:02)
[2021-03-04] MEDS: ESCITALOPRAM OXALATE 20 MG TAB PO SCH (09:02)
[2021-03-04] MEDS: FAMOTIDINE 40 MG TABLET PO SCH ×2 (09:02→21:48)
[2021-03-04] MEDS: NICOTINE 7 MG/24 HR TDSY TD SCH (09:03)
--- NOTE | 2021-03-04 11:44 | Psychiatric Progress Note ---
Date of Service March 04, 2021 Impression / Recommendations Impression 25-year-old male presenting with anxiety and insomnia as well as some increased goal oriented activity. Patient is likely on the bipolar spectrum and will benefit from inpatient hospitalization for purposes of safety, stabilization, medication management. Patient appears to have responded well to antipsychotic use in the emergency department after benzodiazepine use was not effective. Patient is agreeable to start low-dose antipsychotics for purposes of mood stabilization and anxiety relief. (1) Unspecified mood [affective] disorder: The patient was admitted to the [facility] ([facility] health unit) on every 15 minute checks (behavioral with suicide precautions for safety. The patient will participate in group, recreational, and milieu therapies and will be offered additional individual and family sessions as clinically appropriate. 03/04/2021we will continue the Seroquel 250 mg tonight. Lexapro dosage remains at 20 mg p.o. every morning. Patient seems to be quite improved, we will start discharge planning. 03/03/2021we will plan to increase Seroquel to 250 mg tonight. Lexapro dosage to remain at 20 mg p.o. every morning. 03/01/2021atient appears to be responding well to the medication. Will increase nightly dose of Seroquel to 150 mg p.o. nightly, Lexapro dosage will remain at 20 mg p.o. every morning 02/28/2021atient's dosage of Lexapro will be lowered to 20 mg p.o. every morning, Seroquel 75 mg p.o. nightly will be added to his regimen along with Seroquel 25 mg p.o. as needed every 6 hours anxiety. Target dose of a pproximately 250 mg of Seroquel Protective Factors Assessment Employed: Yes Interval History Identifying Information 25-year-old male who presented with complaints of anxiety and panic attack but also acknowledges bipolar symptoms including insomnia, delusions, increased goal oriented activity Chief Complaint "I'm doing good". Review of Systems Sleep Information Total Hours of Sleep: 6.5 Sleep Comments: pt on q-15 minute checks Meal Information Percent Meal Consumed - Breakfast: 20 Percent Meal Consumed - Lunch: 100 Percent Meal Consumed - Dinner: 50 Nutrition Comment: Pt said that he usually doesn't eat a lot at breakfast Subjective Subjective Patient seen, chart reviewed and case discussed with treatment team, nursing and social work. Patient reports a good night of sleep and strong appetite. Patient states that the medication last night was a little bit too sedating, but he understands that a large increase was made in an attempt to more rapidly titrate his dose. He is agreeable to continue the dose tonight again with the understanding that it will not be as sedating as his tolerance is increasing. Regarding mood, patient reports some improvement which they attribute to the medications as well as the therapy they have received on the unit. Stating that he is feel more stable without episodes of panic. I spent 30 minutes with the patient, 50% of which was dedicated to counselling and coordination of care. Physical Exam Psychiatric Orientation: alert and oriented x 3 Apperance: appropriately dressed Eye Contact: good eye contact Motor Behavior: no abnormal motor movements Speech: normal rate/rhythm/volume of speech Affect: + anxious affect Mood: + anxious mood Thought Process: linear/logical thought process Thought Content: reality based without delusions Suicidal Thoughts: denies suicidal thoughts and denies suicidal plan Homicidal Thoughts: denies homicidal thoughts and denies homicidal plan Hallucinations: no auditory hallucinations and no visual hallucinations Cognition: recent memory grossly intact Estimated Intelligence: consistent with education level Insight: + fair insight Judgement: + fair judgement Vital Signs (Past 24 Hours) Last Vital Signs Temp 36.4 C L 03/04/21 06:48 Pulse 59 L 03/04/21 06:49 Resp 16 03/04/21 06:48 BP 142/82 H 03/04/21 06:49 Pulse Ox 98 02/28/21 02:48 Results & Data ([facility]) Current Inpatient Medications Current Inpatient Medications: Current Inpatient Medications Acetaminophen (Acetaminophen 325 Mg Tab) 650 mg PO Q4H PRN PRN Reason: Headache or Minor Fever Stop: 03/30/21 03:23 Al Hydrox/Mg Hydrox/Simethicone (Aluminum/Magnesium Susp 30 Ml Udc) 30 ml PO Q4H PRN PRN Reason: GI Upset Stop: 03/30/21 03:23 Bismuth Subsalicylate (Bismuth Subsalicylate Liqd 236 Ml) 15 ml PO PRN PRN PRN Reason: Loose Stool Stop: 03/30/21 03:23 Escitalopram Oxalate (Escitalopram Oxalate 20 Mg Tab) 20 mg PO QAM [facility] Stop: 03/30/21 11:29 Last Admin: 03/04/21 09:02 Dose: 20 mg Documented by: Famotidine (Famotidine 40 Mg Tablet) 40 mg PO BID [facility] Stop: 03/30/21 08:59 Last Admin: 03/04/21 09:02 Dose: 40 mg Documented by: Lorazepam (Lorazepam 1 Mg Tab) 2 mg PO BID PRN PRN Reason: Panic attack Stop: 03/30/21 03:24 Last Admin: 02/28/21 23:07 Dose: 2 mg Documented by: Losartan Potassium (Losartan Potassium 50 Mg Tab) 50 mg PO QAM [facility] Stop: 03/30/21 08:59 Last Admin: 03/04/21 09:02 Dose: 50 mg Documented by: Magnesium Hydroxide (Magnesium Hydroxide Susp 30 Ml Udc) 30 ml PO DAILY PRN PRN Reason: Constipation Stop: 03/30/21 03:23 Miscellaneous (Remove Nicoderm Patch) 1 ea N/A DAILY@0859 [facility] Stop: 03/30/21 08:58 Last Admin: 03/04/21 09:03 Dose: Not Given Documented by: Nicotine (Nicotine 7 Mg/24 Hr Tdsy) 7 mg TD QAM [facility] Stop: 03/30/21 08:59 Last Admin: 03/04/21 09:03 Dose: Not Given Documented by: Quetiapine Fumarate (Quetiapine Fumarate 25 Mg Tablet) 25 mg PO Q6 PRN PRN Reason: Anxiety Stop: 03/30/21 11:59 Last Admin: 03/01/21 23:48 Dose: 25 mg Documented by: Quetiapine Fumarate (Quetiapine Fumarate 100 Mg Tablet) 250 mg PO HS [facility] Stop: 04/02/21 21:59 Last Admin: 03/03/21 21:13 Dose: 250 mg Documented by: Sodium Chloride (Sodium Chloride 0.65% Na Soln 45 Ml ([place])) 1 - 2 sprays NA PRN PRN PRN Reason: Nasal Dryness/Congestion Stop: 03/30/21 03:23 Mental Health & Subst Abuse Tx Psychiatrist Name of Psychiatrist: [facility] Psychiatrist's Psychiatric Appointment Comment: [address] [place] [address] Therapist Name of Therapist: Antonio Sauceda Therapist's Date of Therapist Appointment: 03/07/21 Time of Therapist Appointment: 2:40 p.m. Therapy Appointment Comment: Telehealth video Internship Name of Internship: . Post Discharge Appointments Primary Care Physician Name Of Family Doctor: Antonio Lui Primary Care Date of Appointment with PCP: 05/23/21 Time of Appointment with PCP: 2:20 p.m. Provider Appointment Comment: [facility] Contact Information Discharge Discharge Address: [address] [place] [id number]
[2021-03-04] MEDS: QUEtiapine FUMARATE 100 MG TABLET PO SCH (21:46)
[2021-03-05] MEDS: LOSARTAN POTASSIUM 50 MG TAB PO SCH (08:13)
[2021-03-05] MEDS: ESCITALOPRAM OXALATE 20 MG TAB PO SCH (08:13)
[2021-03-05] MEDS: FAMOTIDINE 40 MG TABLET PO SCH (08:13)
[2021-03-05] MEDS: NICOTINE 7 MG/24 HR TDSY TD SCH (08:14)
[2021-03-05 09:20] LABS: Albumin Globulin Ratio 1.4 (0.9-2); Albumin Level 4.2 gm/dl (3.4-5.0); Bilirubin,Total 0.5 mg/dl (0.2-1); Calcium 9.5 mg/dl (8.5-10.1); Creatinine Clr Calc Pharmacy 150.7 ml/min; Est GFR (African American) 138.4 ml/min; Est GFR (Non-African American) 119.4 ml/min; Potassium 3.9 mmol/L (3.5-5.1); Total Protein 7.2 gm/dl (6.4-8.2)
--- NOTE | 2021-03-05 17:56 | Discharge Summary ---
Date of Service March 05, 2021 History of Present Illness As per original note from ED insurance case manager "Met with the patient during Dr. Lowe examination to complete Brief Assessment. The patient reports he has been a mess for a few months with anxiety and panic attacks and feeling like he constantly has adrenaline rushing through his body. The patient reports he took Diazepam today and still had a panic attack and feels like his whole body is tingling and numb. The patient reports he is afraid there is something more than mental health problems and took multiple Autism Spectrum Disorder tests online, all of which he reports he scored high on (also reports there is a family history of Autism). The patient reports he is terrified about what is going on and wants to stop taking benzodiazepines. The patient reports N/V, poor concentration and possible visual hallucinations (thought the room he is in was pink earlier). The patient is requesting inpatient treatment due to his high levels of anxiety and panic and to try to find out if there is more than just mental health involved with his problems. Patient currently denies S/I and H/I. Medical clearance explained. Met with the patient to complete Psychiatric Mental Health Evaluation. The patient reports his anxiety has been out of control for the past couple of months and benzodiazepines havent been helping (reports he would like to get off of the medications). The patient reports his main stressor is his current living arrangement and his roommates getting mad at him because he is having anxiety / panic attacks and is unable to keep up with cleaning. The patient reports he works at [employer], but is on pause because they want him to take FMLA due to his anxiety and panic. The patient reports poor appetite and will only eat when his stomach hurts. He reports he has poor sleep with an average of 5-6 hours per night with problems falling and staying asleep. The patient reports manic episodes where he feels like hes going to take over the world. The patient reports daily but not constant anxiety symptoms of shaking, crying, fast heart rate and feelings of numbness and tingling (rates current anxiety at 4 after medications but was a 10 upon arrival). The patient reports over the past 2 weeks he has been having panic attacks where he has worsening symptoms of his anxiety. The patient reports he had been drinking heavily at the start of COVID but has cut down considerably from then and denies other drug use (other than prescribed medications). The patient denies suicidal and homicidal ideation (scored a 5 on his Suicide Assessment) as well as self-injurious behavior. The patient is requesting inpatient treatment to deal with his anxiety / panic attacks due to continued deterioration on an outpatient basis. He reports he sees Dr. Sauceda for therapy and is trying to get in with [facility] for psychiatry." Upon evaluation today patient endorsed the above information is accurate. Patient reports feeling as if he is on the bipolar spectrum as he is endorsing a history of increased goal oriented activity, periods of insomnia with surplus energy, pressured speech and racing thoughts. Patient also acknowledges periods of increased spending. He denies any audio or visual hallucinations. Denies any paranoia. Patient does report a history of mental health problems in his family including his father who is anxious and depressed. He reports an increase of the symptoms especially after having started Lexapro medication, and is reporting frequent panic attacks without relief with benzodiazepines. Patient is agreeable to take antipsychotic medication in efforts to aid with his panic and anxiety. He does report drinking sometimes up to several drinks per day in an attempt to control his anxiety, but states he is no longer getting any enjoyment or relief from drinking. He reports similarly with marijuana that it has been helpful until it was not at which point it started causing him severe anxiety. Patient does acknowledge occasional use but states that he has no difficulty stopping if necessary. Patient does report one episode of depression around age 19 at which time patient states he was going through a lot of difficult times both with his schooling as well as his relationships. He stated at that time he was having suicidal thoughts, but never acted upon them. Physical Exam Psychiatric Orientation: alert and oriented x 3 Apperance: appropriately dressed Eye Contact: good eye contact Motor Behavior: no abnormal motor movements Speech: normal rate/rhythm/volume of speech Affect: + anxious affect Mood: + anxious mood Thought Process: linear/logical thought process Thought Content: reality based without delusions Suicidal Thoughts: denies suicidal thoughts and denies suicidal plan Homicidal Thoughts: denies homicidal thoughts and denies homicidal plan Hallucinations: no auditory hallucinations and no visual hallucinations Cognition: recent memory grossly intact Estimated Intelligence: consistent with education level Insight: + fair insight Judgement: + fair judgement Vital Signs (Past 24 Hours) Last Vital Signs Temp 36.3 C L 03/05/21 11:46 Pulse 72 03/05/21 11:46 Resp 16 03/05/21 11:46 BP 140/82 03/05/21 11:46 Pulse Ox 98 03/05/21 11:46 Principal Diagnosis Generalized anxiety Disorder Psychiatric Data See daily stay summary. In short, safety was maintained, and the patient was cooperative with care. Medication changes included bringing Lexapro dosage down to 20 mg p.o. every morning as well as adding Seroquel and up titrating to a dose of 250 mg p.o. nightly and they tolerated this well. A family session was held and safety plan was completed prior to discharge. Day of Discharge Assessment Today the patient voices readiness for discharge. They note improvement in mood and deny thoughts to harm self or others. Thoughts remain organized and they are improved from admission. There is no evidence of psychosis. They agree to take medications as prescribed and keep follow-up appointments. They are stable for discharge to outpatient level of care. Transition of Care Transition Of Care Record: was reviewed with the patient Advance Directives Advance Directives Information Provided: Yes Advance Directives: No Mental Health Advance Directive: No Advance Directives on File: No Living Will: No Power of Feed Mill Operator: No Advance Directives Reason:: Declines as Mental Health Visit. Risk Factors Assessment Male: Yes : Yes Do You Have Access To A Gun?: No Health Problems: No Mental Health Diagnoses: Yes Substance Use Disorders: No Hopelessness: No Smoker: No Protective Factors Assessment Employed: Yes Stable Relationships: Yes Supportive Family: Yes Discharge Data Lab Results 02/27/21 02/27/21 02/27/21 20:20 20:20 20:20 WBC RBC Hgb Hct MCV MCH MCHC RDW Std Deviation RDW Coeff of Sarah Plt Count MPV Immature Gran % (Auto) Neut % (Auto) Lymph % (Auto) [place] % (Auto) Eos % (Auto) Baso % (Auto) Neut # (Auto) Lymph # (Auto) [place] # (Auto) Eos # (Auto) Baso # (Auto) Immature Gran # (Auto) Sodium Potassium Chloride Carbon Dioxide Anion Gap BUN Creatinine Est Cr Clr Drug Dosing Est GFR ( Amer) Est GFR (Non-Af Amer) BUN/Creatinine Ratio Glucose Fasting Glucose Calcium Total Bilirubin AST ALT Alkaline Phosphatase Total Protein Albumin Globulin Albumin/Globulin Ratio Triglycerides Cholesterol LDL Cholesterol, Calc VLDL Cholesterol, Calc HDL Cholesterol Cholesterol/HDL Ratio TSH Urine Color Urine Appearance Urine pH Ur Specific Dodson Urine Protein Urine Glucose (UA) Urine Ketones Urine Blood Urine Nitrite Urine Bilirubin Urine Urobilinogen Ur Leukocyte Esterase Urine WBC (Auto) Urine RBC (Auto) U Hyaline Cast (Auto) U Epithel Cells (Auto) Urine Bacteria (Auto) Salicylates Urine Opiates Screen Ur Methadone, Qual Acetaminophen Urine Barbiturates Ur Phencyclidine (PCP) U Amphetamin/Meth Scrn MDMA (Ecstasy) Screen U OH-Alprazolam Confrm U Benzodiazepines Scrn 7-Amino Clonazepam Ur Nordiazepam Confirm U OH-ethylflurazepam U Lorazepam Cnf GC/MS U Oxazepam Confm GC/MS Ur Temazepam Confirm U OH-Triazolam Confirm U OH-Midazolam Confirm Ur Cocaine Metabolite U Marijuana (THC) Screen U Marijuana THC Carboxy Drug Screen Comment Ethyl Alcohol mg/dL COVID-19 Eval Order Cancelled Covid19 at [facility] SARS-CoV-2 (PCR) NEGATIVE 02/27/21 02/27/21 02/27/21 20:34 20:34 20:34 WBC 8.74 RBC 5.06 Hgb 15.4 Hct 43.2 MCV 85.4 MCH 30.4 MCHC 35.6 RDW Std Deviation 41.3 RDW Coeff of Sarah 13.3 Plt Count 321 MPV 10.5 H Immature Gran % (Auto) 0.2 Neut % (Auto) 59.3 Lymph % (Auto) 30.7 [place] % (Auto) 6.4 Eos % (Auto) 3.2 Baso % (Auto) 0.2 Neut # (Auto) 5.18 Lymph # (Auto) 2.68 [place] # (Auto) 0.56 Eos # (Auto) 0.28 Baso # (Auto) 0.02 Immature Gran # (Auto) 0.02 Sodium 140 Potassium 3.6 Chloride 108 H Carbon Dioxide 23 Anion Gap 9.0 BUN 12 Creatinine 1.03 Est Cr Clr Drug Dosing 125.1 Est GFR ( Amer) 114.8 Est GFR (Non-Af Amer) 99.1 BUN/Creatinine Ratio 11.6 Glucose 83 Fasting Glucose Calcium 9.7 Total Bilirubin 0.6 AST 23 ALT 35 Alkaline Phosphatase 71 Total Protein 8.0 Albumin 4.9 Globulin 3.1 Albumin/Globulin Ratio 1.6 Triglycerides Cholesterol LDL Cholesterol, Calc VLDL Cholesterol, Calc HDL Cholesterol Cholesterol/HDL Ratio TSH 1.910 Urine Color Urine Appearance Urine pH Ur Specific Dodson Urine Protein Urine Glucose (UA) Urine Ketones Urine Blood Urine Nitrite Urine Bilirubin Urine Urobilinogen Ur Leukocyte Esterase Urine WBC (Auto) Urine RBC (Auto) U Hyaline Cast (Auto) U Epithel Cells (Auto) Urine Bacteria (Auto) Salicylates < 1.7 L Urine Opiates Screen Ur Methadone, Qual Acetaminophen < 2 L Urine Barbiturates Ur Phencyclidine (PCP) U Amphetamin/Meth Scrn MDMA (Ecstasy) Screen U OH-Alprazolam Confrm U Benzodiazepines Scrn 7-Amino Clonazepam Ur Nordiazepam Confirm U OH-ethylflurazepam U Lorazepam Cnf GC/MS U Oxazepam Confm GC/MS Ur Temazepam Confirm U OH-Triazolam Confirm U OH-Midazolam Confirm Ur Cocaine Metabolite U Marijuana (THC) Screen U Marijuana THC Carboxy Drug Screen Comment Ethyl Alcohol mg/dL COVID-19 Eval Order SARS-CoV-2 (PCR) 02/27/21 02/27/21 02/27/21 20:34 22:59 22:59 WBC RBC Hgb Hct MCV MCH MCHC RDW Std Deviation RDW Coeff of Sarah Plt Count MPV Immature Gran % (Auto) Neut % (Auto) Lymph % (Auto) [place] % (Auto) Eos % (Auto) Baso % (Auto) Neut # (Auto) Lymph # (Auto) [place] # (Auto) Eos # (Auto) Baso # (Auto) Immature Gran # (Auto) Sodium Potassium Chloride Carbon Dioxide Anion Gap BUN Creatinine Est Cr Clr Drug Dosing Est GFR ( Amer) Est GFR (Non-Af Amer) BUN/Creatinine Ratio Glucose Fasting Glucose Calcium Total Bilirubin AST ALT Alkaline Phosphatase Total Protein Albumin Globulin Albumin/Globulin Ratio Triglycerides Cholesterol LDL Cholesterol, Calc VLDL Cholesterol, Calc HDL Cholesterol Cholesterol/HDL Ratio TSH Urine Color Yellow Urine Appearance Clear Urine pH 5.5 Ur Specific Dodson 1.022 Urine Protein Trace H Urine Glucose (UA) Negative Urine Ketones 2+ H Urine Blood Negative Urine Nitrite Negative Urine Bilirubin Negative Urine Urobilinogen Negative Ur Leukocyte Esterase Negative Urine WBC (Auto) 1-5 Urine RBC (Auto) 0-4 U Hyaline Cast (Auto) 0 U Epithel Cells (Auto) 5-10 H Urine Bacteria (Auto) Negative Salicylates Urine Opiates Screen Neg Ur Methadone, Qual Neg Acetaminophen Urine Barbiturates Neg Ur Phencyclidine (PCP) Neg U Amphetamin/Meth Scrn Neg MDMA (Ecstasy) Screen Neg U OH-Alprazolam Confrm U Benzodiazepines Scrn Pos H 7-Amino Clonazepam Ur Nordiazepam Confirm U OH-ethylflurazepam U Lorazepam Cnf GC/MS U Oxazepam Confm GC/MS Ur Temazepam Confirm U OH-Triazolam Confirm U OH-Midazolam Confirm Ur Cocaine Metabolite Neg U Marijuana (THC) Screen Pos H U Marijuana THC Carboxy Drug Screen Comment Ethyl Alcohol mg/dL < 3.0 COVID-19 Eval Order SARS-CoV-2 (PCR) 02/27/21 03/05/21 22:59 08:03 WBC RBC Hgb Hct MCV MCH MCHC RDW Std Deviation RDW Coeff of Sarah Plt Count MPV Immature Gran % (Auto) Neut % (Auto) Lymph % (Auto) [place] % (Auto) Eos % (Auto) Baso % (Auto) Neut # (Auto) Lymph # (Auto) [place] # (Auto) Eos # (Auto) Baso # (Auto) Immature Gran # (Auto) Sodium 138 Potassium 3.9 Chloride 107 Carbon Dioxide 25 Anion Gap 6.0 BUN 12 Creatinine 0.85 Est Cr Clr Drug Dosing 150.7 Est GFR ( Amer) 138.4 Est GFR (Non-Af Amer) 119.4 BUN/Creatinine Ratio Glucose Fasting Glucose 84 Calcium 9.5 Total Bilirubin 0.5 AST 15 ALT 33 Alkaline Phosphatase 64 Total Protein 7.2 Albumin 4.2 Globulin 3.0 Albumin/Globulin Ratio 1.4 Triglycerides 197 H Cholesterol 202 H LDL Cholesterol, Calc 124 VLDL Cholesterol, Calc 39 HDL Cholesterol 39 Cholesterol/HDL Ratio 5 TSH Urine Color Urine Appearance Urine pH Ur Specific Dodson Urine Protein Urine Glucose (UA) Urine Ketones Urine Blood Urine Nitrite Urine Bilirubin Urine Urobilinogen Ur Leukocyte Esterase Urine WBC (Auto) Urine RBC (Auto) U Hyaline Cast (Auto) U Epithel Cells (Auto) Urine Bacteria (Auto) Salicylates Urine Opiates Screen Ur Methadone, Qual Acetaminophen Urine Barbiturates Ur Phencyclidine (PCP) U Amphetamin/Meth Scrn MDMA (Ecstasy) Screen U OH-Alprazolam Confrm NEGATIVE U Benzodiazepines Scrn 7-Amino Clonazepam SEE NOTE Ur Nordiazepam Confirm 102 H U OH-ethylflurazepam NEGATIVE U Lorazepam Cnf GC/MS 310 H U Oxazepam Confm GC/MS NEGATIVE Ur Temazepam Confirm NEGATIVE U OH-Triazolam Confirm NEGATIVE U OH-Midazolam Confirm NEGATIVE Ur Cocaine Metabolite U Marijuana (THC) Screen U Marijuana THC Carboxy 1265 H Drug Screen Comment SEE NOTE Ethyl Alcohol mg/dL COVID-19 Eval Order SARS-CoV-2 (PCR) Hospital Course (1) Unspecified mood [affective] disorder: The patient was admitted to the [facility] ([facility]) on every 15 minute checks (behavioral with suicide precautions for safety. The patient will participate in group, recreational, and milieu therapies and will be offered additional individual and family sessions as clinically appropriate. 03/04/2021 will continue the Seroquel 250 mg tonight. Lexapro dosage remains at 20 mg p.o. every morning. Patient seems to be quite improved, we will start discharge planning. 03/03/2021 will plan to increase Seroquel to 250 mg tonight. Lexapro dosage to remain at 20 mg p.o. every morning. 03/01/2021atient appears to be responding well to the medication. Will increase nightly dose of Seroquel to 150 mg p.o. nightly, Lexapro dosage will remain at 20 mg p.o. every morning 02/28/2021atient's dosage of Lexapro will be lowered to 20 mg p.o. every morning, Seroquel 75 mg p.o. nightly will be added to his regimen along with Seroquel 25 mg p.o. as needed every 6 hours anxiety. Target dose of approximately 250 mg of Seroquel Mental Health & Subst Abuse Tx Psychiatrist Name of Psychiatrist: Carmen Alvares Psychiatrist's Date of Appointment with Psychiatrist: 03/28/21 Time of Appointment with Psychiatrist: 11 am Psychiatric Appointment Comment: Telehealth video Psychiatrist Release of Information: Obtained, Reviewed and Signed Therapist Name of Therapist: Antonio Sauceda Therapist's Date of Therapist Appointment: 03/07/21 Time of Therapist Appointment: 2:40 p.m. Therapy Appointment Comment: Telehealth video Therapist Release of Information: Obtained, Reviewed and Signed Photocopier Technician Name of Photocopier Technician: . Post Discharge Appointments Primary Care Physician Name Of Family Doctor: Antonio Lui [facility] Date of Appointment with PCP: 03/12/21 Time of Appointment with PCP: 1:25 p.m. Provider Appointment Comment: [facility] Release of Information: Obtained, Reviewed and Signed Contact Information Discharge Discharge Address: [address] [place] [address] Discharge Plan Discharge Items Patient Disposition: Home - Self-Care Reason For Visit: GENERALIZED ANXIETY DISORDER Discharge Diagnosis: Generalized Anxiety Disorder Activity: Resume your previous activity Non-emergency contact: Primary Care Provider, Psychiatrist and Therapist Call non-emergency contact if: you have any medication questions Follow-up/Referrals: Akbar Lui, [Primary Care Provider] - Diet: Regular Addtl Attending Provider Instructions: SPECIAL CARE INSTRUCTIONS: 1. Follow through with your scheduled aftercare appointments. If unable to keep an appointment, please call to reschedule. 2. Take your medication only as prescribed. Medication should not be changed or stopped without the approval of your doctor. In the event of worsening symptoms or concerns about side effects, contact your doctor immediately. 3. Utilize new healthy coping skills, anger management skills, and stress management skills learned during your hospitalization. Journal feelings and process them with a support person. Identify stressors or situations that may result in relapse, deterioration or inappropriate behaviors and develop a plan to deal with those issues. 4. If your coping skills are ineffective and you are in crisis, contact your outpatient providers for direction. If unable to reach your providers, please call the [facility] CRISIS LINE AT , go to the [facility] walk-in center at [address], [address], [place], or go to the closest Emergency Room. 5. Avoid alcohol and un-prescribed drugs. 6. You have been provided with the Mental Health Advance Directives Pamphlet for your review. AFTERCARE APPOINTMENTS: * Please call your insurance company prior to your scheduled appointment to confirm your aftercare providers are covered. Take your insurance information to your appointments. WHO TO CALL AND WHEN: Medical Emergencies: For questions or emergencies related to your hospital stay, please contact the Inpatient Behavioral Health Unit at [phone]. A psychiatric aide instructor is on-call 10/02 for the Behavioral Health Unit for emergencies At any time you feel your situation is an emergency, you may also call 911 immediately. Pending Studies at Discharge: No Stand-Alone Forms: My [facility], Smoking Cessation Medications and DC Order Prescriptions: New quetiapine 100 mg Tablet 250 mg PO HS 30 Days Qty: 75 RF: 0 escitalopram oxalate 20 mg Tablet 20 mg PO QAM 30 Days Qty: 30 RF: 0 Continued losartan 50 mg tablet 50 mg PO DAILY RF: 0 famotidine 40 mg tablet 40 mg PO BID RF: 0 Discontinued lorazepam 0.5 mg tablet 0.5 mg PO BID PRN (Reason: Anxiety) RF: 0 hydroxyzine HCl 10 mg tablet 10 mg PO TID PRN (Reason: Anxiety) RF: 0 escitalopram oxalate 20 mg tablet 30 mg PO DAILY RF: 0 Discharge Orders: Discharge Order (Routine); Ordered 03/05/21 Ordered By: Chandra Dallas Admission Data Admit Date/Time: 02/28/21 02:20 Attending Provider: Chandra Dallas Admit Provider: Chandra Dallas Primary Care Provider: Akbar Lui Other Interventions: Discharge Summary Assessment (RN) Last Done: 03/05/21 11:46 PSY Interdisciplinary Discharge Planning Last Done: 03/05/21 12:02 Coding Level of Care Code 35280 D/C day mgmt > 30 min Diagnoses Unspecified mood [affective] disorder F39 Time Spent (min) 40
== END 2021-03-05 12:24 | disposition home or self-care (01) | DRG 880 ==
LOC: ED 19:39 → 3S 02-28 02:20
DX: Z81.8 Family history of other mental and behavioral disorders; F39 Unspecified mood [affective] disorder; Z95.2 Presence of prosthetic heart valve; F41.1 Generalized anxiety disorder; I10 Essential (primary) hypertension; F17.210 Nicotine dependence, cigarettes, uncomplicated